=== PATIENT | female | born 1965 | race Hispanic/Latino ===

== ENCOUNTER 2017-07-10 17:13 | Emergency (ER) | payer MEDICAID ==
[~2017-07-10 17:13] MED LIST: FERS325 PO
[2017-07-10 18:01] LABS: APPEARANCE,URINE Clear (CLEAR); BILIRUBIN,URINE Negative (NEGATIVE); COLOR,URINE Yellow (YELLOW); GLUCOSE, URINE (UA) Negative (NEGATIVE); KETONES,URINE Negative (NEGATIVE); LEUKOCYTE ESTERASE ,URINE Negative (NEGATIVE); NITRATE,URINE Negative (NEGATIVE); OCCULT BLOOD,URINE Negative (NEGATIVE); PROTEIN,URINE Negative (NEGATIVE)
[2017-07-10] MEDS ORDERED: KETOROLAC TROMETHAMINE 15MG/ML ONE ×2 (18:31→21:15)
[2017-07-10 18:44] LABS: BASOPHILS % (AUTO) 0.2 % (0.0-5.0); EOSINOPHILS % (AUTO) 1.2 % (0.0-8.0); HEMATOCRIT 42.9 % (36-48); LYMPHOCYTES % (AUTO) 31.7 % (21.0-51.0); MEAN CORPUSCULAR HEMOGLOBIN 30.1 pg (27.0-33.0); MEAN CORPUSCULAR HGB CONC 33.4 g/dL (32.0-36.0); MEAN CORPUSCULAR VOLUME 90.2 fL (79-99); MONOCYTES % (AUTO) 8.9 % (3.0-13.0); PLATELET COUNT (AUTO) 129 K/uL (130-400); RED BLOOD CELL COUNT(AUTO) 4.76 MIL/uL (4.00-5.50); RED CELL DISTRIBUTION WIDTH 13.3 % (11.0-15.5); WHITE BLOOD COUNT (AUTO) 5.3 K/uL (4.8-10.8)
[2017-07-10 19:03] LABS: POTASSIUM 3.8 mmol/L (3.5-5.1)
[2017-07-10 19:07] LABS: ALBUMIN 3.4 g/dL (3.5-5.0); BILIRUBIN,TOTAL 0.2 mg/dL (0.2-1.0); TOTAL PROTEIN, SERUM 7.1 g/dL (6.0-8.3)
== END 2017-07-10 21:31 | disposition home or self-care (01) ==
LOC: EDH 17:13
DX: N83.202 Unspecified ovarian cyst, left side (principal); Z88.0 Allergy status to penicillin; Z88.8 Allergy status to other drugs, medicaments and biological substances; Z90.49 Acquired absence of other specified parts of digestive tract; Z98.890 Other specified postprocedural states; Z90.710 Acquired absence of both cervix and uterus; Z72.0 Tobacco use
CPT/HCPCS: 36415; 71045; 74176; 80053; 81003; 82150; 83690; 85025; 96374; 96376; 99285; J1885 ×2

== ENCOUNTER 2018-05-03 16:21 | Emergency (ER) | payer MEDICAID ==
[2018-05-03 17:30] LABS: BASOPHILS % (AUTO) 0.6 % (0.0-5.0); EOSINOPHILS % (AUTO) 0.7 % (0.0-8.0); HEMATOCRIT 45.1 % (36-48); LYMPHOCYTES % (AUTO) 21.2 % (21.0-51.0); MEAN CORPUSCULAR HEMOGLOBIN 30.5 pg (27.0-33.0); MEAN CORPUSCULAR HGB CONC 33.1 g/dL (32.0-36.0); MEAN CORPUSCULAR VOLUME 91.9 fL (79-99); MONOCYTES % (AUTO) 5.7 % (3.0-13.0); NEUTROPHILS % (AUTO) 71.8 % (40.0-77.0); PLATELET COUNT (AUTO) 150 K/uL (130-400); RED CELL DISTRIBUTION WIDTH 13.2 % (11.0-15.5); WHITE BLOOD COUNT (AUTO) 9.4 K/uL (4.8-10.8)
[2018-05-03 17:47] LABS: CREATININE 0.8 mg/dL (0.5-1.5); POTASSIUM 3.8 mmol/L (3.5-5.1)
[2018-05-03 17:48] LABS: ALBUMIN 3.3 g/dL (3.5-5.0); BILIRUBIN,TOTAL 0.3 mg/dL (0.2-1.0); TOTAL PROTEIN, SERUM 6.7 g/dL (6.0-8.3)
[2018-05-03] MEDS ORDERED: MECLIZINE HCL 25 MG TABLET ONE (17:58)
[2018-05-03 18:04] LABS: APPEARANCE,URINE Cloudy (CLEAR); BILIRUBIN,URINE Negative (NEGATIVE); COLOR,URINE Yellow (YELLOW); GLUCOSE, URINE (UA) Negative (NEGATIVE); KETONES,URINE Negative (NEGATIVE); LEUKOCYTE ESTERASE ,URINE Trace (NEGATIVE); NITRATE,URINE Negative (NEGATIVE); OCCULT BLOOD,URINE Negative (NEGATIVE); PROTEIN,URINE Negative (NEGATIVE)
[2018-05-03 18:11] LABS: AMPHET/METH SCREEN,URINE NEGATIVE (NEGATIVE); BARBITURATE SCREEN, URINE NEGATIVE (NEGATIVE); BENZODIAZEPINES SCREEN,URINE NEGATIVE (NEGATIVE); CANNABINOID SCREEN,URINE NEGATIVE (NEGATIVE); COCAINE SCREEN,URINE NEGATIVE (NEGATIVE); OPIATE SCREEN,URINE NEGATIVE (NEGATIVE); PHENCYCLIDINE SCREEN,URINE NEGATIVE (NEGATIVE)
[2018-05-03 18:24] LABS: BACTERIA,URINE Moderate /HPF (None Seen); MUCUS,URINE Few LPF (None Seen); RBC,URINE None Seen /HPF (0-1); SQUAMOUS EPITHELIAL CELL,UR 0-2 /HPF (0-2)
[2018-05-03] MEDS ORDERED: CEPHALEXIN 500 MG CAPSULE ONE (19:47)
== END 2018-05-03 20:01 | disposition home or self-care (01) ==
LOC: EDH 16:21
DX: N39.0 Urinary tract infection, site not specified (principal); H81.399 Other peripheral vertigo, unspecified ear; R51 Headache; F41.9 Anxiety disorder, unspecified; Z88.0 Allergy status to penicillin; Z90.49 Acquired absence of other specified parts of digestive tract; Z90.710 Acquired absence of both cervix and uterus; Z72.0 Tobacco use
CPT/HCPCS: 36415; 80053; 80305; 81001; 82150; 82550; 83690; 84443; 84484; 85025; 87077; 87088; 87186; 93005

== ENCOUNTER 2018-08-16 16:05 | Emergency (ER) | payer MEDICAID | END 2018-08-16 16:33 | disposition home or self-care (01) | LOC: EDH 16:05 | DX: R21 Rash and other nonspecific skin eruption (principal); L29.9 Pruritus, unspecified; F41.9 Anxiety disorder, unspecified; Z88.0 Allergy status to penicillin; Z72.0 Tobacco use | CPT/HCPCS: 99281 ==

== ENCOUNTER 2018-10-28 15:52 | Emergency (ER) | payer MEDICAID ==
[2018-10-28 16:41] LABS: BASOPHILS % (AUTO) 0.4 % (0.0-5.0); EOSINOPHILS % (AUTO) 0.9 % (0.0-8.0); HEMATOCRIT 45.4 % (36-48); LYMPHOCYTES % (AUTO) 25.9 % (21.0-51.0); MEAN CORPUSCULAR HEMOGLOBIN 29.9 pg (27.0-33.0); MEAN CORPUSCULAR HGB CONC 32.6 g/dL (32.0-36.0); MEAN CORPUSCULAR VOLUME 91.9 fL (79-99); MONOCYTES % (AUTO) 5.5 % (3.0-13.0); NEUTROPHILS % (AUTO) 67.3 % (40.0-77.0); NUCLEATED RED BLOOD CELLS 0.1 % (0.0-0.19); PLATELET COUNT (AUTO) 138 K/uL (130-400); RED BLOOD CELL COUNT(AUTO) 4.95 MIL/uL (4.00-5.50); RED CELL DISTRIBUTION WIDTH 13.7 % (11.0-15.5); WHITE BLOOD COUNT (AUTO) 5.4 K/uL (4.8-10.8)
[2018-10-28] MEDS ORDERED: ONDANSETRON HCL 4 MG/2 ML VIAL ONE (16:42)
[2018-10-28] MEDS ORDERED: FAMOTIDINE/PF 20 MG/2 ML VIAL IV ONE (16:42)
[2018-10-28] MEDS ORDERED: SODIUM CHLORIDE 0.9% 1000ML 1,000 ML IV ONE (16:42)
[2018-10-28 16:58] LABS: CREATININE 0.8 mg/dL (0.5-1.5); POTASSIUM 3.5 mmol/L (3.5-5.1)
[2018-10-28 17:04] LABS: ALBUMIN 3.6 g/dL (3.5-5.0); BILIRUBIN,TOTAL 0.3 mg/dL (0.2-1.0)
[2018-10-28] MEDS ORDERED: MAG HYDROX/AL HYDROX/SIMETH ES 30 ML SUSP UDCUP ONE (17:41)
[2018-10-28] MEDS ORDERED: LIDOCAINE HCL 2% VISCOUS 15 ML UDCUP ONE (17:41)
== END 2018-10-28 17:48 | disposition home or self-care (01) ==
LOC: EDH 15:52
DX: K21.9 Gastro-esophageal reflux disease without esophagitis (principal); J06.9 Acute upper respiratory infection, unspecified; F41.9 Anxiety disorder, unspecified; Z88.0 Allergy status to penicillin; Z88.8 Allergy status to other drugs, medicaments and biological substances; Z90.49 Acquired absence of other specified parts of digestive tract; Z90.710 Acquired absence of both cervix and uterus
CPT/HCPCS: 36415; 80053; 83690; 84484; 85025; 87804 ×2; 93005; 96374; 96375; 99285; J2405; J3490; J7030

== ENCOUNTER 2022-06-25 10:20 | Emergency (ER) | payer MEDICAID, OTHER ==
[~2022-06-25] VITALS: Ht 157.5 cm; Wt 74.8 kg
[2022-06-25] MEDS ORDERED: 0.9%NACL 1000ML 1,000 ML IV ONE (10:30)
[2022-06-25 10:55] LABS: BASOPHILS % (AUTO) 0.4 % (0.0-5.0); HEMATOCRIT 46.3 % (36-48); MEAN CORPUSCULAR VOLUME 90.6 fL (79-99); MONOCYTES % (AUTO) 8.6 % (3.0-13.0); NEUTROPHILS % (AUTO) 58.6 % (40.0-77.0); PLATELET COUNT (AUTO) 144 K/uL (130-400); RED BLOOD CELL COUNT(AUTO) 5.11 MIL/uL (4.00-5.50); RED CELL DISTRIBUTION WIDTH 12.6 % (11.0-15.5); WHITE BLOOD COUNT (AUTO) 5.5 K/uL (4.8-10.8)
[2022-06-25 11:03] LABS: POTASSIUM 3.8 mmol/L (3.5-5.1)
[2022-06-25 11:08] LABS: ALBUMIN 3.8 g/dL (3.5-5.0)
[2022-06-25 11:32] LABS: APPEARANCE,URINE CLOUDY (CLEAR); BILIRUBIN,URINE NEGATIVE (NEGATIVE); COLOR,URINE YELLOW (YELLOW); GLUCOSE, URINE (UA) NEGATIVE (NEGATIVE); KETONES,URINE NEGATIVE (NEGATIVE); LEUKOCYTE ESTERASE ,URINE 250 Leu/uL (NEGATIVE); NITRATE,URINE 2+ (NEGATIVE); PROTEIN,URINE 10 mg/dL (NEGATIVE); UROBILINOGEN,URINE 0.2 mg/dL (0.2-1.0)
[2022-06-25] MEDS ORDERED: ACETAMINOPHEN 500 MG TABLET PO STA (11:35)
[2022-06-25 11:45] LABS: BACTERIA,URINE MANY /HPF (None Seen); MUCUS,URINE MANY LPF (None Seen); SQUAMOUS EPITHELIAL CELL,UR FEW /HPF (0-2)
[2022-06-25 12:56] VITALS: BP 140/75
[2022-06-25] MEDS ORDERED: SULF1TAB42 PO (13:47)
[2022-06-25] MEDS ORDERED: NAPR375T6 PO (13:47)
[2022-06-25] MEDS ORDERED: KETOROLAC 30MG VIAL (30MG/ML) ONE (13:51)
== END 2022-06-25 14:11 | disposition home or self-care (01) ==
LOC: EDH 10:20
DX: N39.0 Urinary tract infection, site not specified (principal); Z90.49 Acquired absence of other specified parts of digestive tract; Z79.899 Other long term (current) drug therapy; Z88.0 Allergy status to penicillin; Z88.8 Allergy status to other drugs, medicaments and biological substances
CPT/HCPCS: 99284; 96374; 96361; 84484; 80053; 85025; 87077; 87088; 87186; 81001; 36415; 93005; J7030; J1885

== ENCOUNTER 2022-09-07 13:40 | Emergency (ER) | payer OTHER ==
[~2022-09-07] VITALS: Ht 157.5 cm; Wt 77.1 kg
[~2022-09-07 13:40] MED LIST changes: +NAPR375T6 PO; +SULF1TAB42 PO
[2022-09-07] MEDS ORDERED: ONDANSETRON 4MG INJ IVP ONE (15:00)
[2022-09-07] MEDS ORDERED: 0.9%NACL 1000ML 1,000 ML IV ONE (15:00)
[2022-09-07 15:07] LABS: BASOPHILS % (AUTO) 0.4 % (0.0-5.0); HEMATOCRIT 46.1 % (36-48); LYMPHOCYTES % (AUTO) 33.5 % (21.0-51.0); MEAN CORPUSCULAR HEMOGLOBIN 29.1 pg (27.0-33.0); MEAN CORPUSCULAR VOLUME 88.3 fL (79-99); MONOCYTES % (AUTO) 7.6 % (3.0-13.0); NEUTROPHILS % (AUTO) 57.2 % (40.0-77.0); PLATELET COUNT (AUTO) 142 K/uL (130-400); RED BLOOD CELL COUNT(AUTO) 5.22 MIL/uL (4.00-5.50); WHITE BLOOD COUNT (AUTO) 7.2 K/uL (4.8-10.8)
[2022-09-07 15:21] LABS: APPEARANCE,URINE CLOUDY (CLEAR); BILIRUBIN,URINE NEGATIVE (NEGATIVE); COLOR,URINE LIGHT-YELLOW (YELLOW); GLUCOSE, URINE (UA) NEGATIVE (NEGATIVE); KETONES,URINE NEGATIVE (NEGATIVE); LEUKOCYTE ESTERASE ,URINE 25 Leu/uL (NEGATIVE); NITRATE,URINE 1+ (NEGATIVE); OCCULT BLOOD,URINE NEGATIVE (NEGATIVE); PH,URINE 5.5 (5.0-8.0); PROTEIN,URINE NEGATIVE (NEGATIVE); UROBILINOGEN,URINE 0.2 mg/dL (0.2-1.0)
[2022-09-07] MEDS ORDERED: LACT10SO5 PO (15:27)
[2022-09-07 15:30] LABS: ALBUMIN 3.8 g/dL (3.5-5.0); CREATININE 0.8 mg/dL (0.5-1.5); POTASSIUM 3.8 mmol/L (3.5-5.1); TOTAL PROTEIN, SERUM 6.9 g/dL (6.0-8.3)
[2022-09-07 15:36] LABS: BACTERIA,URINE MOD /HPF (None Seen); MUCUS,URINE RARE LPF (None Seen); OTHER CASTS, URINE 1 /LPF (None Seen); SQUAMOUS EPITHELIAL CELL,UR MOD /HPF (0-2)
[2022-09-07] MEDS ORDERED: SULF1TAB42 PO (15:37)
[2022-09-07 16:32] VITALS: BP 113/64
== END 2022-09-07 16:52 | disposition home or self-care (01) ==
LOC: EDH 13:40
DX: N39.0 Urinary tract infection, site not specified (principal); K59.00 Constipation, unspecified; K80.20 Calculus of gallbladder without cholecystitis without obstruction; Z90.49 Acquired absence of other specified parts of digestive tract; Z79.899 Other long term (current) drug therapy; Z98.890 Other specified postprocedural states; Z88.0 Allergy status to penicillin; Z88.8 Allergy status to other drugs, medicaments and biological substances
CPT/HCPCS: 99285; 74176; 96374; 96361; 84484; 80053; 83690; 85025; 87077; 87088; 87186; 81001; 36415; J7030; J2405

== ENCOUNTER 2023-06-25 10:48 | Emergency (ER) | payer OTHER ==
[~2023-06-25] VITALS: Ht 157.5 cm; Wt 78.0 kg
[~2023-06-25 10:48] MED LIST changes: +LACT10SO5 PO
[2023-06-25 11:17] VITALS: BP 134/91; PULSE 64; RESP 20
[2023-06-25 13:08] LABS: APPEARANCE,URINE CLEAR (CLEAR); BILIRUBIN,URINE NEGATIVE (NEGATIVE); COLOR,URINE LIGHT-YELLOW (YELLOW); GLUCOSE, URINE (UA) NEGATIVE (NEGATIVE); KETONES,URINE NEGATIVE (NEGATIVE); LEUKOCYTE ESTERASE ,URINE NEGATIVE Leu/uL (NEGATIVE); NITRATE,URINE NEGATIVE (NEGATIVE); OCCULT BLOOD,URINE NEGATIVE (NEGATIVE); PH,URINE 5.5 (5.0-8.0); PROTEIN,URINE NEGATIVE (NEGATIVE); UROBILINOGEN,URINE 0.2 mg/dL (0.2-1.0)
[2023-06-25 13:13] LABS: ADD UA MICROSCOPIC NO
[2023-06-25 14:24] LABS: BASOPHILS # (AUTO) 0.03 K/uL (0.00-0.20); BASOPHILS % (AUTO) 0.4 % (0.0-5.0); EOSINOPHILS # (AUTO) 0.17 K/uL (0.00-0.70); EOSINOPHILS % (AUTO) 2.3 % (0.0-8.0); HEMATOCRIT 47.1 % (36-48); IMMATURE GRANULOCYTE ABSOLUTE 0.02 K/uL (0-1); LYMPHOCYTES # (AUTO) 2.3 K/uL (1.0-4.8); LYMPHOCYTES % (AUTO) 30.6 % (21.0-51.0); MEAN CORPUSCULAR HGB CONC 32.5 g/dL (32.0-36.0); MEAN CORPUSCULAR VOLUME 89.4 fL (79-99); MONOCYTES # (AUTO) 0.3 K/uL (0.1-1.0); MONOCYTES % (AUTO) 4.4 % (3.0-13.0); NEUTROPHILS # (AUTO) 4.7 K/uL (1.8-7.7); PLATELET COUNT (AUTO) 143 K/uL (130-400); RED BLOOD CELL COUNT(AUTO) 5.27 MIL/uL (4.00-5.50); RED CELL DISTRIBUTION WIDTH 12.6 % (11.0-15.5); WHITE BLOOD COUNT (AUTO) 7.5 K/uL (4.8-10.8)
[2023-06-25 14:49] LABS: CREATININE 0.8 mg/dL (0.5-1.5); POTASSIUM 4.1 mmol/L (3.5-5.1)
[2023-06-25 14:54] LABS: ALBUMIN 3.7 g/dL (3.5-5.0); BILIRUBIN,TOTAL 0.4 mg/dL (0.2-1.0); TOTAL PROTEIN, SERUM 7.1 g/dL (6.0-8.3)
[2023-06-25] MEDS ORDERED: ACET-2893 PO (15:10)
== END 2023-06-25 15:30 | disposition home or self-care (01) ==
LOC: EDH 10:48
DX: S39.012A Strain of muscle, fascia and tendon of lower back, initial encounter (principal); Z79.899 Other long term (current) drug therapy; Z90.49 Acquired absence of other specified parts of digestive tract; Z98.890 Other specified postprocedural states; Z88.0 Allergy status to penicillin; Z88.8 Allergy status to other drugs, medicaments and biological substances; X58.XXXA Exposure to other specified factors, initial encounter; Y93.89 Activity, other specified; Y92.89 Other specified places as the place of occurrence of the external cause; Y99.8 Other external cause status
CPT/HCPCS: 36415; 74176; 80053; 81003; 83690; 85025

== ENCOUNTER 2024-01-14 16:01 | Emergency (ER) | payer BC ==
[~2024-01-14] VITALS: Ht 157.5 cm; Wt 81.6 kg
[~2024-01-14 16:01] MED LIST changes: +ACET-2893 PO; +LACT-441 PO; -LACT10SO5 PO; +NAPR-1505 PO; -NAPR375T6 PO
--- NOTE | 2024-01-14 16:17 | ERN ---
General Stated Complaint: FEVER, COUGH Time Seen by MD: 16:07 History of Present Illness Initial Comments 58 years old female patient who presents to or emergency apartment complaining of cough, runny nose, and chest pain that began yesterday. Allergies: Coded Allergies: Penicillins (Unverified Allergy, Unknown, RASH, 04/17/18) Quinolones (Unverified Allergy, Unknown, HIVES, 07/03/15) Home Meds Active Scripts Famotidine (Famotidine) 20 Mg Tablet, 20 MG PO DAILY for 30 Days, #30 TAB Prov:RICHARD CARVAJAL NP 02/24/24 Atorvastatin Calcium (LIPITOR) 20 Mg Tab, 1 TAB PO DAILY for 30 Days, #30 TAB 0 Refills Prov:RICHARD CARVAJAL NP 02/24/24 Aspirin (Aspirin) 81 Mg Tab.chew, 1 TAB PO DAILY for 30 Days, #30 TAB 0 Refills Prov:RICHARD CARVAJAL NP 02/24/24 Clopidogrel Bisulfate (Plavix) 75 Mg Tablet, 75 MG PO DAILY for 20 Days, #20 TAB Prov:RICHARD CARVAJAL NP 02/24/24 Reported Medications Acetaminophen (Tylenol) 500 Mg Tab, 1 TAB PO Q6HPRN PRN for pain or fever for 15 Days, #60 TAB 0 Refills 02/24/24 Discontinued Scripts Azithromycin (Azithromycin) 500 Mg Tablet, 500 MG PO DAILY for 5 Days, #5 TAB Prov:KATERINA ALICEA MD 01/14/24 Acetaminophen (Acetaminophen ER) 650 Mg Tablet.er, 650 MG PO TID, #30 TAB Prov:EMELY ORTEGA 06/25/23 Sulfamethoxazole/Trimethoprim (Bactrim Ds Tablet) 1 Each Tablet, 1 TAB PO BID for uti for 5 Days, #10 TAB Prov:PARKER GRIFFIN MD 09/07/22 Lactulose (Lactulose) 10 Gm/15 Ml Solution, 10 GM PO BID for 5 Days, #120 ML Prov:PARKER GRIFFIN MD 09/07/22 Naproxen (Naproxen) 375 Mg Tablet.dr, 375 MG PO BID PRN for headache for 10 Days, #20 TAB Prov:MOHIT BAUMANN MD 06/25/22 Sulfamethoxazole/Trimethoprim (Bactrim Ds Tablet) 1 Each Tablet, 1 TAB PO BID for 7 Days, #14 TAB Prov:MOHIT BAUMANN MD 06/25/22 Ferrous Sulfate (Ferrous Sulfate) 325 Mg Ectab, 325 MG PO DAILY, #60 TAB.EC Prov:RICHARD STRAUSS MD 07/04/15 Past Medical History Past Medical History: Other Medical History Other: ANEMIA Past Surgical History: Cholecystectomy, Social History Social History: Negative ROS Dictation Constitutional: Intermittent fever, No appetite loss, chills , No night sweats, No weakness, fatigue Eye: No vision change, No redness, pain or discharge ENT: No hearing loss, ear pain or discharge, No nose bleeds, No sore throat, Neck: No swelling. pain or stiffness Respiratory: Cough, runny nose, No shortness of breath, No wheezing. Cardiovascular: Chest pain, No palpitations, No dyspnea, No edema Gastrointestinal: No abdominal pain, No nausea, vomiting, No diarrhea, constipation Genitourinary: No painful urination, No blood in urine, No urinary incontinence, No frequency or urgency Musculoskeletal: No joint pain, muscle pain, swelling or stiffness Neurological: No numbness, tingling, No weakness, tremors or seizures Psychiatric: : No depression, No anxiety, No sleep disturbance, No Memory changes Lymphatic: No easy bruising, No bleeding tendencies , No swollen lymph nodes A 13-point Review of Systems was assessed, all of which are negative except for HPI or as indicated above. Physical Exam Physical Exam Dictation General: Alert & Oriented, No acute distress. EENT: Pharyngeal erythema, No conjunctival redness or discharge noted Tympanic membranes are clear, Normal hearing, Oral mucosa is moist, No pharyngeal erythema, No nasal discharge, No oral lesions. Neck: Non-tender, No jugular vein distention, No lymphadenopathy, No thyromegaly, Supple. Respiratory: Lungs are clear to auscultation, Respirations are non-labored, Breath sounds are equal, No chest wall tenderness, _. Cardiovascular: Normal rate, Normal rhythm, No murmur, Good pulses equal in all extremities, Normal peripheral perfusion, No edema. Gastrointestinal: Soft, Non-tender, Non-distended, Normal bowel sounds, No organomegaly, _. Musculoskeletal: Normal range of motion, Normal strength, No tenderness, No swelling, No deformity, Normal gait. Integumentary: Warm, Dry, [place], Intact, No pallor, No rash. Neurologic: Alert, Oriented x4, Normal sensory, No focal defects Psychiatric: Cooperative, Appropriate mood & affect, Normal judgement, Non- suicidal. Results Laboratory and Microbiology Lab and Micro Result Laboratory Tests Test 01/14/24 16:36 01/14/24 16:38 01/14/24 17:40 Influenza Type A Antigen Negative For Type A Influenza Type B Antigen Negative For Type B SARS-CoV-2 Antigen (Rapid) PRESUMPTIVE NEGATIVE Group A Streptococcus Rapid positive (NEGATIVE) *A White Blood Count 6.7 K/uL (4.8-10.8) Red Blood Count 5.02 MIL/uL (4.00-5.50) Hemoglobin 14.7 g/dL (12.0-16.0) Hematocrit 45.5 % (36-48) Mean Corpuscular Volume 90.6 fL (79-99) Mean Corpuscular Hemoglobin 29.3 pg (27.0-33.0) Mean Corpuscular Hemoglobin Concent 32.3 g/dL (32.0-36.0) Red Cell Distribution Width 13.1 % (11.0-15.5) Platelet Count 152 K/uL (130-400) Mean Platelet Volume 11.9 fL (7.5-10.5) H Nucleated Red Blood Cells 0.0 % (0.0-0.19) Sodium Level 143 mmol/L (136-145) Potassium Level 3.6 mmol/L (3.5-5.1) Chloride Level 109 mmol/L (101-111) Carbon Dioxide Level 28 mmol/L (21-32) Blood Urea Nitrogen 14 mg/dL (7-18) Creatinine 1.0 mg/dL (0.5-1.0) Glomerular Filtration Rate Calc 66 mL/min (>90) Random Glucose 99 mg/dL (70-105) Total Calcium 8.7 mg/dL (8.5-10.1) Urine Color YELLOW (YELLOW) Urine Appearance CLOUDY (CLEAR) H Urine pH 5.5 (5.0-8.0) Urine Specific [place] 1.023 (1.001-1.031) Urine Protein 10 mg/dL (NEGATIVE) H Urine Glucose (UA) NEGATIVE mg/dL (NEGATIVE) Urine Ketones NEGATIVE mg/dL (NEGATIVE) Urine Occult Blood +- (TRACE) (NEGATIVE) H Urine Nitrate 2+ (NEGATIVE) H Urine Bilirubin NEGATIVE mg/dL (NEGATIVE) Urine Urobilinogen 0.2 mg/dL (0.2-1.0) Urine Leukocyte Esterase 25 [place]/uL (NEGATIVE) H Urine RBC 2-5 /HPF (0-1) H Urine WBC 6-10 /HPF (0-1) H Urine Squamous Epithelial Cells FEW /HPF (0-2) Urine Bacteria FEW /HPF (None Seen) Urine Yeast RARE /HPF (None Seen) Labs Reviewed?: Yes EKG/XRAY/US/CT/MRI EKG Comment PATIENT: SHARON RENNER MR#: [id number] : 1965 SEX: F AGE: 58 LOCATION: ED ROOM/BED: ORDER [id number] REPORT#: [id number] REASON: ORDERING PHYSICIAN: KATERINA ALICEA MD PROCEDURE: EKG - 12 LEAD EKG TRACING- TECHNICAL [facility] Test Date: 2024-01-14 Test Time: 16:29:51 Pat Name: SHARON RENNER Department: [facility] [address] Room: Gender: Female 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 MDM MDM: Differential diagnosis: Cough, viral syndrome, strep Rationale: Tests considered and ordered secondary to shared decision making include: Previous outside records reviewed: Old ER visits. Risk of complication and/or morbidity or mortality of patient management: None Medications-Per medication reconciliation Need for hospitalization: Patient does not meet criteria for hospitalization. Need for emergency major/minor surgery: No There are no social concerns with this patient. Prescription drug management Prescriptions will include symptomatic care Patient's prior external medical records from other ER visits were reviewed by me as indicated. Prior testing and results from previous visits were reviewed. Prior tests were taken into account with medical decision making and resource utilization, independent historian/historians were used to obtain complete medical history. I independently interpreted the test that were performed, results were reviewed by me and considered findings on radiology if ordered. Medical management and examination interpretation discussions were had by me with other qualified healthcare professionals as indicated for the patient's care. ED Course Orders Procedure Category Date Status Time Chest 1vw RAD 01/14/24 Resulted 16:17 Cbc Without LAB 01/14/24 Complete Differential 16:17 Basic Metabolic Panel LAB 01/14/24 Complete 16:17 12 Lead Ekg Tracing- EKG 01/14/24 Resulted Technical 16:17 Covid19 (Sars Antigen LAB 01/14/24 Complete Rapid) 16:17 Influenza Type A & B, LAB 01/14/24 Complete Rapid 16:17 Rapid (Group A Strep) LAB 01/14/24 Complete 16:17 Urinalysis Profile LAB 01/14/24 Complete 17:30 Culture Urine FANY 01/14/24 Complete 17:47 Vital Signs Date Time Temp Pulse Resp B/P (MAP) Pulse Ox O2 Delivery O2 Flow Rate FiO2 01/14/24 18:39 98.8 86 18 149/76 98 Room Air* 0 21 01/14/24 17:15 98.6 82 18 155/94 98 Room Air* 0 21 01/14/24 16:21 98.4 68 18 129/84 97 DX & DISP Disposition: Discharge Departure Impression: Primary Impression: Strep pharyngitis Additional Impression: UTI (urinary tract infection) Critical Time: 30 minutes Condition: Stable Additional Instructions: *Follow up with your primary care physician in 2 - 3 days after discharge. *Continue all medications as prescribed. Do not discontinue or change dosages without consulting your PCP. *Gradually resume normal activities as tolerated. *Seek immediate medical attention if you experience chest pain, SOB or severe headache. Discharged to: Condition on Discharge: Stable Follow-up with primary care provider in 1 to 2 days. Take medications as directed here in the emergency room. Okay to continue home medications unless otherwise discussed during your visit in the emergency room today. Return to your nearest emergency room if symptoms worsen or if there is no improvement. Call 911 if you need immediate assistance. Take Tylenol or Motrin [id number] as needed and if no contraindications are present. Increase oral hydration. Referrals: SELF,REFERRAL (PCP) I was present and participated in the care of this patient alongside the resident physician. I have reviewed and personally made and improve the management plan that is documented in the note by myself or the resident physician. I acknowledge full responsibility for the patient's management plan. ATTESTATION BY PHYSICIAN I have seen and examined the patient. I reviewed the documentation, medical decision making, and treatment plan as noted by the resident provider above. I agree with the findings and plan of care. Wojciech Arreguin MD, GERARDO MD Jan 14, 2024 16:17 WOJCIECH ARREGUIN MD Feb 28, 2024 13:31
--- NOTE | 2024-01-14 16:33 | EKG ---
[facility] Test Date: 2024-01-14 Test Time: 16:29:51 Pat Name: SHARON RENNER Department: ED Room: Gender: F Generation Manager: [id number] : 1965 Requested By: KATERINA ALICEA Order Number: [id number] Reading MD: Paola Estrada Measurements Intervals [place] Rate: 64 P: 35 [place]: 154 QRS: -32 QRSD: 85 T: -7 QT: 413 QTc: 426 Interpretive Statements Sinus rhythm Compared to ECG 06/25/2022 10:38:01 Left ventricular hypertrophy no longer present T-wave abnormality no longer present Electronically Signed On 01-16-2024 07:23:07 CDT by Paola Estrada Please click the below link to view image of tracing.
[2024-01-14 17:00] LABS: HEMATOCRIT 45.5 % (36-48); MEAN CORPUSCULAR HEMOGLOBIN 29.3 pg (27.0-33.0); MEAN CORPUSCULAR HGB CONC 32.3 g/dL (32.0-36.0); MEAN CORPUSCULAR VOLUME 90.6 fL (79-99); RED BLOOD CELL COUNT(AUTO) 5.02 MIL/uL (4.00-5.50); RED CELL DISTRIBUTION WIDTH 13.1 % (11.0-15.5); WHITE BLOOD COUNT (AUTO) 6.7 K/uL (4.8-10.8)
[2024-01-14 17:10] LABS: POTASSIUM 3.6 mmol/L (3.5-5.1)
[2024-01-14 17:28] LABS: COVID19 (SARS ANTIGEN RAPID) PRESUMPTIVE NEGATIVE (NEGATIVE); INFLUENZA TYPE A Negative For Type A (NEGATIVE); INFLUENZA TYPE B Negative For Type B (NEGATIVE)
[2024-01-14 17:46] LABS: ADD UA MICROSCOPIC YES; APPEARANCE,URINE CLOUDY (CLEAR); BILIRUBIN,URINE NEGATIVE (NEGATIVE); COLOR,URINE YELLOW (YELLOW); GLUCOSE, URINE (UA) NEGATIVE (NEGATIVE); KETONES,URINE NEGATIVE (NEGATIVE); LEUKOCYTE ESTERASE ,URINE 25 Leu/uL (NEGATIVE); NITRATE,URINE 2+ (NEGATIVE); PH,URINE 5.5 (5.0-8.0); PROTEIN,URINE 10 mg/dL (NEGATIVE); UROBILINOGEN,URINE 0.2 mg/dL (0.2-1.0)
[2024-01-14 17:49] LABS: BACTERIA,URINE FEW /HPF (None Seen); MUCUS,URINE RARE LPF (None Seen); SQUAMOUS EPITHELIAL CELL,UR FEW /HPF (0-2); YEAST,URINE BUDDING RARE /HPF (None Seen)
[2024-01-14 17:49] LABS: RAPID GROUP A STREP positive (NEGATIVE)
--- NOTE | 2024-01-14 17:57 | HMCIMG ---
CHEST 1VW HISTORY: Acute cough COMPARISON: 07/10/2017 FINDINGS: A frontal projection of the chest was obtained. No acute pulmonary infiltrates is seen. The heart is borderline enlarged. Prominent interstitial markings are seen. Degenerative changes are seen. No evidence of aortic calcification is seen. IMPRESSION: 1. No acute pulmonary infiltrate is seen.
[2024-01-14] MEDS ORDERED: AZIT500T4 PO (18:13)
[2024-01-14 18:39] VITALS: BP 149/76; PULSE 86; RESP 18; TEMP 98.7; O2SAT 98
--- NOTE | 2024-01-22 10:36 | NUR ---
UPON CULTURE REVIEW BY DR. WALLS, NO FURTHER ABX NEEDED.
== END 2024-01-14 18:43 | disposition home or self-care (01) ==
LOC: EDH 16:01
DX: J02.0 Streptococcal pharyngitis (principal); Z20.822 Contact with and (suspected) exposure to COVID-19; N39.0 Urinary tract infection, site not specified; Z79.02 Long term (current) use of antithrombotics/antiplatelets; Z79.82 Long term (current) use of aspirin; Z79.899 Other long term (current) drug therapy; Z88.0 Allergy status to penicillin; Z88.8 Allergy status to other drugs, medicaments and biological substances; Z90.49 Acquired absence of other specified parts of digestive tract; Z98.890 Other specified postprocedural states
CPT/HCPCS: 36415; 71045; 80048; 81001; 85027; 87086; 87186; 87426; 87804; 87880; 93005

== ENCOUNTER 2024-02-23 12:00 | Inpatient (IN) | payer BC ==
[~2024-02-23] VITALS: Ht 157.5 cm; Wt 79.8 kg
[~2024-02-23 12:00] MED LIST changes: +AZIT500T4 PO
[2024-02-23 12:27] LABS: BASOPHILS # (AUTO) 0.01 K/uL (0.00-0.20); BASOPHILS % (AUTO) 0.2 % (0.0-5.0); EOSINOPHILS # (AUTO) 0.11 K/uL (0.00-0.70); EOSINOPHILS % (AUTO) 2.1 % (0.0-8.0); HEMATOCRIT 44.7 % (36-48); IMMATURE GRANULOCYTE ABSOLUTE 0.01 K/uL (0-1); LYMPHOCYTES # (AUTO) 2.1 K/uL (1.0-4.8); LYMPHOCYTES % (AUTO) 38.8 % (21.0-51.0); MEAN CORPUSCULAR HEMOGLOBIN 29.6 pg (27.0-33.0); MEAN CORPUSCULAR HGB CONC 33.6 g/dL (32.0-36.0); MEAN CORPUSCULAR VOLUME 88.3 fL (79-99); MONOCYTES # (AUTO) 0.3 K/uL (0.1-1.0); NEUTROPHILS # (AUTO) 2.8 K/uL (1.8-7.7); NEUTROPHILS % (AUTO) 52.7 % (40.0-77.0); PLATELET COUNT (AUTO) 150 K/uL (130-400); RED BLOOD CELL COUNT(AUTO) 5.06 MIL/uL (4.00-5.50); RED CELL DISTRIBUTION WIDTH 12.7 % (11.0-15.5); WHITE BLOOD COUNT (AUTO) 5.3 K/uL (4.8-10.8)
[2024-02-23 12:36] LABS: CREATININE 0.9 mg/dL (0.5-1.0); POTASSIUM 3.5 mmol/L (3.5-5.1)
--- NOTE | 2024-02-23 12:43 | HMCIMG ---
CT HEAD/BRAIN W/O CONTRAST HISTORY: Code stroke COMPARISON: None TECHNIQUE: Multiple sequential axial images of the head were obtained from the base of the skull through vertex. Patient was not given contrast through intravenous route. FINDINGS: The ventricles and extraventricular CSF spaces are nondilated for patient's age. There is no midline shift, mass effect or herniation. No acute intracranial bleed is seen. Visualized portion of the paranasal sinuses are grossly within normal limits. IMPRESSION: 1. No acute intracranial bleed is seen. CT was performed with one or more following dose reduction techniques: automated exposure control, adjustment of the mA and kv according to patient's size, or use of a iterative reconstruction technique.
--- NOTE | 2024-02-23 12:46 | EKG ---
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
--- NOTE | 2024-02-23 13:01 | HMCIMG ---
CHEST 1VW HISTORY: Shortness of breath COMPARISON: 01/14/2024 FINDINGS: A frontal projection of the chest was obtained. No acute pulmonary infiltrates is seen. The heart is normal in size. Prominent interstitial markings are seen. Degenerative changes are seen. No evidence of aortic calcification is seen. IMPRESSION: 1. No acute pulmonary infiltrate is seen.
[2024-02-23 13:06] LABS: B-TYPE NATRIURETIC PEPTIDE 16 pg/mL (0-100)
--- NOTE | 2024-02-23 13:14 | CONS ---
CONSULT NOTE: [facility] Note # Demographics Consult Type: Acute Stroke Level 1 (0-4.5 hrs) Patient Location: Emergency Room First Name: SHARON Last Name: ZURDO Date of : 1965 Age: 59 Gender: Female Facility: [facility] Time of Initial Page (Central Time): 02/23/2024, 12:53 Time of Return Call (Central Time): 02/23/2024, 12:53 # HPI History: 59yo woman presents to the ED with left sided weakness starting at around 1145AM today. She has no numbness or tingling. She does have left shoulder soreness. Duration: - improving Associated Symptoms: - no vision changes - no confusion - no dizziness # Scores Time of exam and NIHSS (Central Time): 02/23/2024, 12:56 Level of Consciousness 1a: [0] = Alert; keenly responsive LOC Questions 1b: [0] = Answers both questions correctly LOC Commands 1c: [0] = Performs both tasks correctly Best Gaze 2: [0] = Normal Visual 3: [0] = No visual loss Facial Palsy 4: [0] = Normal symmetrical movements Motor Arm Left 5a: [0] = No drift Motor Arm Right 5b: [0] = No drift Motor Leg Left 6a: [0] = No drift Motor Leg Right 6b: [0] = No drift Limb Ataxia 7: [0] = Absent Sensory 8: [0] = Normal Best Language 9: [0] = No aphasia Dysarthria 10: [0] = Normal Extinction and Inattention 11: [0] = No abnormality NIHSS Total: 0 # PMH-FH-SH Past Medical History: - denies Social History: - smoker - non-drinker Medications: - No antithrombotics or anticoagulants reported # Assessment Impression: - Transient Ischemic Attack # Plan Thrombolytic/Intervention: NOT IV Thrombolysis or IA Intervention candidate Thrombolytic Exclusion (< 3 hour window): - NIHSS = 0 Intraarterial Exclusion: - clinical exam not consistent with presence of large vessel occlusion (LVO), can reconsider if LVO found on vascular imaging Target Blood Pressure: SBP < 220 Labs: - lipid panel Imaging: (urgency: STAT): - CT Angiogram Head and CT Angiogram Neck AND call back with results if abnormal Imaging: (urgency: routine): - MRI Brain without contrast Diagnostic Test: - echo with bubble study Therapy/Evaluation: - PT/OT evaluation - speech/swallow consultation Medication: - aspirin 81 mg PLUS clopidogrel (Plavix) 75 mg for 21 days, then monotherapy therafter DVT Prophylaxis: - SCD - chemical DVT prophylaxis Other: - If patient has any neurological deterioration please call me back immediately - LDL < 70 - telemetry monitoring - I have discussed my recommendations with the referring provider - permissive hypertension Disposition: admit # Demographics First Name: SHARON Last Name: ZURDO Facility: [facility] GEOVANNI MOYA MD Feb 23, 2024 13:14
--- NOTE | 2024-02-23 14:09 | ERN ---
General Chief Complaint: Numbness Stated Complaint: LEFT SIDE OF BODY STIFFNESS Time Seen by MD: 12:10 Time Seen by Midlevel: 12:10 Source: patient History of Present Illness Initial Comments Patient is a 59-year-old female coming in to be evaluated for left-sided numbness which subsided upon evaluation in triage. Allergies: Coded Allergies: Penicillins (Unverified Allergy, Unknown, RASH, 04/17/18) Quinolones (Unverified Allergy, Unknown, HIVES, 07/03/15) Home Meds Active Scripts Azithromycin (Azithromycin) 500 Mg Tablet, 500 MG PO DAILY for 5 Days, #5 TAB Prov:KATERINA ALICEA MD 01/14/24 Acetaminophen (Acetaminophen ER) 650 Mg Tablet.er, 650 MG PO TID, #30 TAB Prov:EMELY ORTEGA V DRIVER EDUCATION INSTRUCTOR 06/25/23 Sulfamethoxazole/Trimethoprim (Bactrim Ds Tablet) 1 Each Tablet, 1 TAB PO BID for uti for 5 Days, #10 TAB Prov:PARKER GRIFFIN MD 09/07/22 Lactulose (Lactulose) 10 Gm/15 Ml Solution, 10 GM PO BID for 5 Days, #120 ML Prov:PARKER GRIFFIN MD 09/07/22 Naproxen (Naproxen) 375 Mg Tablet.dr, 375 MG PO BID PRN for headache for 10 Days, #20 TAB Prov:MOHIT BAUMANN MD 06/25/22 Sulfamethoxazole/Trimethoprim (Bactrim Ds Tablet) 1 Each Tablet, 1 TAB PO BID for 7 Days, #14 TAB Prov:MOHIT BAUMANN MD 06/25/22 Ferrous Sulfate (Ferrous Sulfate) 325 Mg Ectab, 325 MG PO DAILY, #60 TAB.EC Prov:RICHARD STRAUSS MD 07/04/15 Past Medical History Past Medical History: Other Medical History Other: ANEMIA Past Surgical History: Cholecystectomy, Social History Social History: Negative ROS Dictation CONSTITUTIONAL: Negative except for HPI HEAD/FACE: Negative except for HPI EENT: Negative except for HPI RESPIRATORY: Negative except for HPI GASTROINTESTINAL/ABDOMINAL: Negative except for HPI GENITOURINARY: Negative except for HPI MUSCULOSKELETAL: Negative except for HPI INTEGUMENTARY: Negative except for HPI NEUROLOGICAL/PSYCH: Negative except for HPI HEMATOLOGIC/LYMPHATIC: Negative except for HPI All Systems Negative, Except as noted above. 13 point review of systems assessed and all negative except for above. Physical Exam Physical Exam Dictation Vital Signs reviewed General Appearance: Alert, oriented x 3, no acute distress, well developed, nourished. Head and Face: non-traumatic. Eyes: PERRL, pink conjunctivas, eyelid no trauma, anterior chamber with arcus senilis. Ears: Pinnas intact and no signs of trauma or erythema ear canals clear and no discharge TM no erythema Nose: No discharge, no bleeding. Oropharynx: Mouth normal, tongue pink, pharynx clear,no erythema, tonsils no exudates, no abscesses noted, mucous membrane moist Neck: Supple, non-tender, no thyromegaly, no masses, no JVD, no bruits Breast:Deferred Chest:No tenderness, no crepitus, no paradoxical movement, no retractions Lungs:Clear, well-ventilated, symmetric, no rales, no wheezing, no rhonchi, no stridor, good breath sounds bilaterally Heart: Regular rate, regular rhythm, no murmur, no gallops Vascular: no peripheral edema, Abdomen: Soft, positive bowel sounds, nondistended, no guarding, nontender, no rebound, no masses no hepatomegaly, no splenomegaly, no Zhang's sign, no hernias. Rectal: Deferred Genital: Deferred Neurological: Normal speech, motor function intact, sensory function intact Musculoskeletal: Neck nontender, full range of motion, back nontender, full range of motion, Extremities: nontender, full range of motion Skin: Color pink, dry, no turgor, no rash, no lacerations, no abrasions, no contusions. Lymphatic: Deferred Stroke Patient?: No Is Patient Candidate for t-PA?: No (Due to rapidly resolving symptoms) Did the Patient Receive t-PA?: No Contraindication for t-PA?: Medical Contraindication NIH STROKE SCALE: NIH STROKE SCALE Response (Comments) Value Level of Consciousness Alert 0 Ask patient month and their age Answers both correct 0 Command to open eyes, make fist and let go Obeys both correct 0 Best gaze (horizontal eye movement) Normal 0 Visual Field Testing No Visual Field Loss 0 Facial Paresis Normal / Symmetrical 0 Motor Function - Left Arm Normal 0 Motor Function - Right Arm Normal 0 Motor Function - Left Leg Normal 0 Motor Function - Right Leg Normal 0 Limb Ataxia No Ataxia 0 Sensory-pin prick to arms, legs, trunk and face Normal 0 Best Language (describe picture, name items and read) No Aphasia 0 Dysarthria (read several words) Normal Articulation 0 Extinction and Inattention Normal 0 Total 0 Neuro Comment: Patient is not a candidate for tPA due to rapidly resolving symptoms. Results Laboratory and Microbiology Lab and Micro Result Laboratory Tests Test 02/23/24 12:09 02/23/24 12:14 White Blood Count 5.3 K/uL (4.8-10.8) Red Blood Count 5.06 MIL/uL (4.00-5.50) Hemoglobin 15.0 g/dL (12.0-16.0) Hematocrit 44.7 % (36-48) Mean Corpuscular Volume 88.3 fL (79-99) Mean Corpuscular Hemoglobin 29.6 pg (27.0-33.0) Mean Corpuscular Hemoglobin Concent 33.6 g/dL (32.0-36.0) Red Cell Distribution Width 12.7 % (11.0-15.5) Platelet Count 150 K/uL (130-400) Mean Platelet Volume 11.8 fL (7.5-10.5) H Immature Granulocyte % (Auto) 0.2 % (0-1) Neutrophils (%) (Auto) 52.7 % (40.0-77.0) Lymphocytes (%) (Auto) 38.8 % (21.0-51.0) Monocytes (%) (Auto) 6.0 % (3.0-13.0) Eosinophils (%) (Auto) 2.1 % (0.0-8.0) Basophils (%) (Auto) 0.2 % (0.0-5.0) Neutrophils # (Auto) 2.8 K/uL (1.8-7.7) Lymphocytes # (Auto) 2.1 K/uL (1.0-4.8) Monocytes # (Auto) 0.3 K/uL (0.1-1.0) Eosinophils # (Auto) 0.11 K/uL (0.00-0.70) Basophils # (Auto) 0.01 K/uL (0.00-0.20) Absolute Immature Granulocyte (auto 0.01 K/uL (0-1) Nucleated Red Blood Cells 0.0 % (0.0-0.19) Sodium Level 142 mmol/L (136-145) Potassium Level 3.5 mmol/L (3.5-5.1) Chloride Level 106 mmol/L (101-111) Carbon Dioxide Level 31 mmol/L (21-32) Blood Urea Nitrogen 12 mg/dL (7-18) Creatinine 0.9 mg/dL (0.5-1.0) Glomerular Filtration Rate Calc 75 mL/min (>90) Random Glucose 125 mg/dL (70-105) H Total Calcium 8.9 mg/dL (8.5-10.1) Total Creatine Kinase 107 U/L (21-232) # Troponin I High Sensitivity 6 ng/L (4-50) B-Type Natriuretic Peptide 16 pg/mL (0-100) Whole Blood Glucose 129 MG/DL (70-110) H Labs Reviewed?: Yes MDM MDM: Patient is a 59-year-old female with a past medical history of Differential diagnosis: TIA, ischemic stroke, and intracranial bleed Rationale: Tests considered and ordered secondary to shared decision making include: Previous outside records reviewed: Old ER visits. Risk of complication and/or morbidity or mortality of patient management: None Medications-Per medication reconciliation Need for hospitalization: Patient does meet criteria for hospitalization. Need for emergency major/minor surgery: No There are no social concerns with this patient. Prescription drug management Prescriptions will include symptomatic care Patient's prior external medical records from other ER visits were reviewed by me as indicated. Prior testing and results from previous visits were reviewed. Prior tests were taken into account with medical decision making and resource utilization, independent historian/historians were used to obtain complete medical history. I independently interpreted the test that were performed, results were reviewed by me and considered findings on radiology if ordered. Medical management and examination interpretation discussions were had by me with other qualified healthcare professionals as indicated for the patient's care. Patient will be admitted under the care of hospitalist group for ongoing evaluation and management of possible TIA. ED Course Orders Procedure Category Date Status Time Cbc With Differential LAB 02/23/24 Complete 12:14 Ct Head/Brain W/O CT 02/23/24 Resulted Contrast 12:14 Chest 1vw RAD 02/23/24 Resulted 12:14 12 Lead Ekg Tracing- EKG 02/23/24 Resulted Technical 12:14 Creatine Kinase, Total LAB 02/23/24 Complete 12:14 Troponin I High LAB 02/23/24 Complete Sensitivity 12:14 Urinalysis Profile LAB 02/23/24 Logged 12:14 B-Type Natriuretic LAB 02/23/24 Complete Peptide 12:14 Bedside Glucose CPOE 02/23/24 Transmitted Fingerstick 12:14 Vital Signs Per CPOE 02/23/24 Transmitted Routine 12:14 Cardiac Monitoring CPOE 02/23/24 Transmitted 12:14 Pulse Ox(Continuous) RT 02/23/24 Transmitted 12:14 Complete Nih Stroke CPOE 02/23/24 Transmitted Scale 12:14 Basic Metabolic Panel LAB 02/23/24 Complete 12:14 Edm Admit Bridge Order ADM 02/23/24 Transmitted 14:40 Famotidine 20mg Tab PHA 02/24/24 In Process (Pepcid 20mg Tab) 09:00 Acetaminophen 325 Tab PHA 02/23/24 In Process (Tylenol 325mg Tab 15:00 Ondansetron 4mg Inj PHA 02/23/24 In Process (Zofran 4mg Inj) 15:00 Clopidogrel 75mg Tab PHA 02/24/24 In Process (Plavix 75mg) 09:00 Aspirin 81mg Ec Tab PHA 02/24/24 In Process (Aspirin 81mg Ec Tab 09:00 Mr Brain Wo Con MRI 02/23/24 Resulted 14:43 Ct Angio Head And Neck CT 02/23/24 Resulted 14:43 Heart Healthy Diet DIET 02/23/24 Transmitted Dinner Speech Communication ST 02/23/24 Transmitted Order 14:43 Pt Eval And Treat PT 02/23/24 Transmitted 14:43 Echo 2-D Complete ECHO 02/23/24 Logged 14:[address] 02/23/24 Transmitted 14:43 Apply Scds CPOE 02/23/24 Transmitted 14:43 Atorvastatin 10mg PHA 02/23/24 In Process (Lipitor 10mg) 21:00 Iohexol (Omnipaque) PHA 02/23/24 Complete 15:10 Thyroid Stimulating LAB 02/23/24 In Process Hormone 15:55 Smoking Cessation TRACY 02/23/24 In Process 15:55 Current Medications Medications (Trade) Dose Ordered Sig/Ike Route PRN Reason Start Time Stop Time Status Last Admin Dose Admin Acetaminophen (TYLenol 325MG TAB) 650 mg Q4H PRN PO TEMPERATURE GREATER THAN 101.5 02/23/24 15:00 03/24/24 14:59 Aspirin (Aspirin 81mg Ec Tab) 81 mg DAILY PO 02/24/24 09:00 03/25/24 08:59 Atorvastatin Calcium (LIPItor 10MG) 10 mg HS PO 02/23/24 21:00 03/24/24 20:59 Clopidogrel Bisulfate (plaVIX 75MG) 75 mg DAILY PO 02/24/24 09:00 03/25/24 08:59 Famotidine (Pepcid 20mg Tab) 20 mg DAILY PO 02/24/24 09:00 03/25/24 08:59 Iohexol (Omnipaque) 75 ml STK-MED ONCE IV 02/23/24 15:10 02/23/24 15:11 DC Ondansetron HCl (zoFRAN 4MG INJ) 4 mg Q6H PRN IVP NAUSEA/VOMITING 02/23/24 15:00 03/24/24 14:59 Vital Signs Date Time Temp Pulse Resp B/P (MAP) Pulse Ox O2 Delivery O2 Flow Rate FiO2 02/23/24 13:34 98.2 60 16 135/72 98 Room Air* 0 21 02/23/24 12:14 97.9 88 16 126/85 98 Room Air 0 [place] [address] IMAGING REPORT Signed PATIENT: SHARON RENNER MR#: [id number] : 1965 SEX: F AGE: 59 LOCATION: [facility] ORDER 1216 STATUS: REG REPORT#: [id number] SERVICE 1214 REASON: left sided numbness ORDERING PHYSICIAN: SABI AMARAL PROCEDURE: HEAD WO - CT HEAD/BRAIN W/O CONTRAST CT HEAD/BRAIN W/O CONTRAST HISTORY: Code stroke COMPARISON: None TECHNIQUE: Multiple sequential axial images of the head were obtained from the base of the skull through vertex. Patient was not given contrast through intravenous route. FINDINGS: The ventricles and extraventricular CSF spaces are nondilated for patient's age. There is no midline shift, mass effect or herniation. No acute intracranial bleed is seen. Visualized portion of the paranasal sinuses are grossly within normal limits. IMPRESSION: 1. No acute intracranial bleed is seen. CT was performed with one or more following dose reduction techniques: automated exposure control, adjustment of the mA and kv according to patient's size, or use of a iterative reconstruction technique. DICTATED BY: JADYN MABRY MD DATE: 02/23/24 1223 ELECTRONICALLY SIGNED BY: JADYN MABRY MD DATE: 02/23/24 1243 [facility] [address] [place] [address] IMAGING REPORT Signed PATIENT: SHARON RENNER MR#: [id number] : 1965 SEX: F AGE: 59 LOCATION: [facility] ORDER 121 STATUS: [facility] REPORT#: [id number] SERVICE 13 REASON: sob ORDERING PHYSICIAN: SABI AMARAL PROCEDURE: CXR1VW - CHEST 1VW CHEST 1VW HISTORY: Shortness of breath COMPARISON: 01/14/2024 FINDINGS: A frontal projection of the chest was obtained. No acute pulmonary infiltrates is seen. The heart is normal in size. Prominent interstitial markings are seen. Degenerative changes are seen. No evidence of aortic calcification is seen. IMPRESSION: 1. No acute pulmonary infiltrate is seen. DICTATED BY: JADYN MABRY MD DATE: 02/23/24 1258 ELECTRONICALLY SIGNED BY: JADYN MABRY MD DATE: 02/23/24 1301 DX & DISP Disposition: Inpatient Decision to Admit Date: Feb 23, 2024 Decision to Admit Time: 14:43 Departure Impression: Primary Impression: TIA (transient ischemic attack) Condition: Stable Referrals: EFRAIN BENITES (PCP) I have reviewed the case, and I agree with, Diagnosis and Plan I performed the substantive portion of the visit. I have reviewed and personally made and approve the management plan that is documented in the note by myself or the DOUGLAS. I acknowledge for responsibility for the patient's management plan. SABI AMARAL Feb 23, 2024 14:09 MOHIT BAUMANN MD Feb 23, 2024 16:16
[2024-02-23] MEDS ORDERED: acetaMINOPHEN 325 MG TAB PO PRN (15:00)
[2024-02-23] MEDS ORDERED: ondanSETRON 4MG INJ IVP PRN (15:00)
[2024-02-23] MEDS ORDERED: IOHEXOL-350 75 ML VIAL IV ONE (15:10)
--- NOTE | 2024-02-23 15:33 | HMCIMG ---
CT ANGIO HEAD AND NECK HISTORY: Left-sided numbness COMPARISON: None TECHNIQUE: CT angiography of the head was performed. The study was performed using angiographic technique with maximum intensity projection reconstruction images. Patient was given 75 cc of Omnipaque through intravenous route. FINDINGS: The ventricles and extraventricular CSF spaces are nondilated for patient's age. There is no midline shift, mass effect or herniation. No acute intracranial bleed is seen. Visualized portion of the paranasal sinuses are grossly within normal limits. No CT evidence of cerebral aneurysm or abnormal arteriovenous communication is seen. Diffuse atherosclerosis changes are present. Bilateral takeoff of the posterior cerebral arteries are seen. Vertebrobasilar arterial system is grossly within normal limits. IMPRESSION: CTA Head 1. Atherosclerotic disease. Otherwise unremarkable CTA of the brain. TECHNIQUE: CT angiography of the neck was performed. The study was performed using angiographic technique with maximum intensity projection reconstruction images. FINDINGS: There are degenerative changes of the cervical spine. Parapharyngeal fat planes are preserved bilaterally. The airway is patent. Normal enhancement of the thyroid gland is noted. Visualized portion of the lung apices are unremarkable. The common, internal and external carotid arteries are visualized. No hemodynamically significant lesion is seen of either extracranial carotid artery system. Both vertebral arteries are seen with antegrade flow. IMPRESSION: CTA Neck 1. Atherosclerotic disease. No hemodynamically significant lesion is seen of either extracranial carotid artery system. CT was performed with one or more following dose reduction techniques: automated exposure control, adjustment of the mA and kv according to patient's size, or use of a iterative reconstruction technique.
--- NOTE | 2024-02-23 16:05 | HMCIMG ---
MR BRAIN WO CON HISTORY: CVA COMPARISON: None TECHNIQUE: MRI of the brain was performed utilizing multiple pulse sequences in axial, coronal and sagittal planes. Patient was not given contrast through intravenous route. FINDINGS: The ventricles and extraventricular CSF spaces are nondilated for patient's age. There is no midline shift, mass effect or herniation. No subacute hemorrhage is seen. 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 There is questionable left pontine infarct. No MR evidence of acute infarct is seen in the diffusion weighted images. Cerebellar tonsils are in normal position. No evidence of mucoperiosteal thickening is seen of the visualized paranasal sinuses. No MR evidence of a mass lesion is seen in this noncontrast study. IMPRESSION: 1. No MR evidence of acute infarct is seen in the diffusion weighted images.
--- NOTE | 2024-02-23 16:05 | HP ---
[facility] HISTORY AND PHYSICAL Date of Service: Feb 23, 2024 Time of Service: 14:37 HISTORY OF PRESENT ILLNESS: [ ] This is a 59-year-old female presents in ED with chief complaints of left-sided weakness. Onset started today at 11:45 a.m.. Severity moderate to severe aggravating factors none alleviating factors none patient reports unable to lift of move left sided she denied numbness or tingling. On arrival to ED symptoms were improved she denied any vision changes, confusion, dizziness,. ER initiated stroke alert patient was evaluated by kevin arcos neuro on his assessment NIHSS was 0 Patient is reports history of smoking smoke one pack cigarettes every [address] head was negative. The patient was seen and examiend in ER 12: no focal or sensory deficit at this time. Further testing to rule CVA. REVIEW OF SYSTEMS CONSTITUTIONAL: Denies fevers, chills, or night sweats. No unintentional weight loss reported. NEUROLOGICAL: Denies headache, amaurosis fugax, motor weakness, sensory deficit, vertigo/spinning sensation, gait abnormalities, or tremors. ENT: No hearing loss, otalgia, otorrhea, rhinitis, rhinorrhea, hoarseness, or sore throat. CARDIOVASCULAR: Denies any exertional angina, dyspnea on exertion, orthopnea, paroxysmal nocturnal dyspnea, palpitations, life-threatening arrhythmias, claudication. PULMONARY: Denies any shortness of breath, cough, phlegm/sputum, hemoptysis, pleuritic chest pain. SLEEP: Denies morning headaches, daytime somnolence or napping. Denies difficulty falling asleep, staying asleep, waking from sleep. Denies knowledge of snoring. GASTROINTESTINAL: Denies any type of dysphagia to either liquids or solids. Denies nausea, vomiting, pyrosis, early satiety, abdominal pain, diarrhea, constipation, or changes in stool consistency or caliber. Denies coffee-ground emesis, hematemesis, hematochezia, or melanotic stools. GENITOURINARY: Denies frequency, urgency, nocturia, hematuria or incontinence (Storage/Irritative symptoms.) Low urinary stream, straining to void, urinary intermittency or hesitancy, splitting of the voiding stream, terminal dribbling. ENDOCRINOLOGIC: Denies polyuria, polydipsia, polyphagia or heat/cold intolerances. HEMATOLOGIC: Denies thrombophilia/previous clots, or coagulopathy/bleeding disorders. ONCOLOGIC: Denies personal history of malignancy. DERMATOLOGIC: Denies rashes or pruritus. PSYCHIATRIC: Denies any suicidal or homicidal ideation. Denies hallucinations. PAST MEDICAL HISTORY: [ ] no history PAST SURGICAL HISTORY: [ ] c cestion left thumb surgery PAST SOCIAL HISTORY: [ ]tobacco dependency: smoke one pack every other day. FAMILY HISTORY: [ ] Noncontributory Coded Allergies: Penicillins (Unverified Allergy, Unknown, RASH, 04/17/18) Quinolones (Unverified Allergy, Unknown, HIVES, 07/03/15) PHYSICAL EXAM GENERAL APPEARANCE: The patient is awake, alert, and oriented, in no acute cardiopulmonary distress. NEUROLOGICAL: Cranial nerves II-XII grossly intact. Motor is 5/5 in bilateral upper and lower extremities proximal to distal. No sensory deficits. HEENT: Face is symmetric. Pupils are equal and reactive. Extraocular movements are intact. NECK: Supple. No JVD. No thyromegaly. No submental, submandibular, pre- /postauricular, occipital or supraclavicular lymphadenopathy. CHEST: Normal chest expansion. No Telemetry. LUNGS: Absence of any rales, rhonchi or any wheezing. CARDIOVASCULAR: Regular. S1 and S2 normal. No appreciable rubs, murmurs or gallops. ABDOMEN: Soft, nontender, and nondistended. There is no rebound, voluntary guarding, or rigidity. : Deferred. No Jovel. EXTREMITIES: Non-edematous and not cyanotic. No clubbing. Good capillary refill. SKIN: No skin breakdown. Vital Sign (Last 24 Hours) 02/23/24 13:34 Temp 98.2 Pulse 60 Resp 16 B/P (MAP) 135/72 Pulse Ox 98 O2 Delivery Room Air* O2 Flow Rate 0 FiO2 21 LABS: Laboratory: Test 02/23/24 12:14 02/23/24 12:09 Range/Units Whole Blood Glucose 129 H 70-110 MG/DL White Blood Count 5.3 4.8-10.8 K/uL Red Blood Count 5.06 4.00-5.50 MIL/uL Hemoglobin 15.0 12.0-16.0 g/dL Hematocrit 44.7 36-48 % Mean Corpuscular Volume 88.3 79-99 fL Mean Corpuscular Hemoglobin 29.6 27.0-33.0 pg Mean Corpuscular Hemoglobin Concent 33.6 32.0-36.0 g/dL Red Cell Distribution Width 12.7 11.0-15.5 % Platelet Count 150 130-400 K/uL Mean Platelet Volume 11.8 H 7.5-10.5 fL Immature Granulocyte % (Auto) 0.2 0-1 % Neutrophils (%) (Auto) 52.7 40.0-77.0 % Lymphocytes (%) (Auto) 38.8 21.0-51.0 % Monocytes (%) (Auto) 6.0 3.0-13.0 % Eosinophils (%) (Auto) 2.1 0.0-8.0 % Basophils (%) (Auto) 0.2 0.0-5.0 % Neutrophils # (Auto) 2.8 1.8-7.7 K/uL Lymphocytes # (Auto) 2.1 1.0-4.8 K/uL Monocytes # (Auto) 0.3 0.1-1.0 K/uL Eosinophils # (Auto) 0.11 0.00-0.70 K/uL Basophils # (Auto) 0.01 0.00-0.20 K/uL Absolute Immature Granulocyte (auto 0.01 0-1 K/uL Nucleated Red Blood Cells 0.0 0.0-0.19 % Sodium Level 142 136-145 mmol/L Potassium Level 3.5 3.5-5.1 mmol/L Chloride Level 106 101-111 mmol/L Carbon Dioxide Level 31 21-32 mmol/L Blood Urea Nitrogen 12 7-18 mg/dL Creatinine 0.9 0.5-1.0 mg/dL Glomerular Filtration Rate Calc 75 >90 mL/min Random Glucose 125 H 70-105 mg/dL Total Calcium 8.9 8.5-10.1 mg/dL Total Creatine Kinase 107 # 21-232 U/L Troponin I High Sensitivity 6 4-50 ng/L B-Type Natriuretic Peptide 16 0-100 pg/mL DIAGNOSTICS / RADIOLOGY: [ ] ASSESSMENT: Suspecting CVA POA left side weakness POA Tobacco dependency POA PLAN: [ ] admit: Med surgical Diet: Heart Healthy consult; [facility] Tele neuroTest: MRI brain, CTA head and neck, 2 D Echo with bubble study Labs: lipid panel, TSH speech, PT eval and treat replaced electrolytes as needed as per protocol fall precaution: call light in reach Medications: Plavix 75 mg po daily and aspirin 81 mg po daily PRN: MEDICATIONS Tylenol 650 mg po every 4 hrs for fever zofran 4 mg IV every 6 hrs for n/v Hydralazine 4mg IV every 4 hrs systolic pressure > 160 Supportive measures: DVT ppx, GI ppx all questions answered time spent: > 35 min Supervising MD: Dr. Borja c/d [facility] PLANNING 1. Which of the following were discussed? Hospice Care - Yes / No Therapeutic options - Yes / No Advance Directives - Yes / No Other discussions - 2. Discussed with who? 3. Voluntary nature of this service was explained to the patient? Yes / No 4. Amount of time spent - 5. Reviewed by Physician? (if this service was performed by NPP) Yes / No ATTESTATION BY PHYSICIAN I have seen and examined the patient. I reviewed the documentation, medical decision making, and treatment plan as noted by the mid-level provider above. I agree with the findings and plan of care. FAIZA BORJA MD ATTESTATION BY PHYSICIAN I have seen and examined the patient. I reviewed the documentation, medical decision making, and treatment plan as noted by the mid-level provider above. I agree with the findings and plan of care. FAIZA BORJA MD, [facility] OPER[employer] SPECIALIST Feb 23, 2024 16:05
[2024-02-23 16:50] LABS: APPEARANCE,URINE CLEAR (CLEAR); BILIRUBIN,URINE NEGATIVE (NEGATIVE); COLOR,URINE COLORLESS (YELLOW); GLUCOSE, URINE (UA) NEGATIVE (NEGATIVE); KETONES,URINE NEGATIVE (NEGATIVE); LEUKOCYTE ESTERASE ,URINE NEGATIVE Leu/uL (NEGATIVE); NITRATE,URINE NEGATIVE (NEGATIVE); OCCULT BLOOD,URINE NEGATIVE (NEGATIVE); PH,URINE 6.5 (5.0-8.0); PROTEIN,URINE 10 mg/dL (NEGATIVE); UROBILINOGEN,URINE 0.2 mg/dL (0.2-1.0)
[2024-02-23 16:53] LABS: ADD UA MICROSCOPIC YES
[2024-02-23 16:56] LABS: MUCUS,URINE RARE LPF (None Seen); SQUAMOUS EPITHELIAL CELL,UR FEW /HPF (0-2)
[2024-02-23] MEDS: atorVAStatin 10 MG TABLET PO SCH (21:07)
[2024-02-24] VITALS (8 sets, daily range): BP systolic 103–144; BP diastolic 47–72; PULSE 51–68; RESP 18; TEMP 97.8–98.6; O2SAT 97–98
[2024-02-24] MEDS ORDERED: ACET-66 PO (02:28)
[2024-02-24] MEDS: traMADol HCL 50 MG TABLET PO ONE (02:44)
[2024-02-24] MEDS ORDERED: ASPI-1197 PO (08:20)
[2024-02-24] MEDS ORDERED: CLOP-31 PO (08:20)
[2024-02-24] MEDS ORDERED: ATOR10 PO (08:20)
[2024-02-24] MEDS ORDERED: FAMO20TA8 PO (08:20)
[2024-02-24] MEDS: cloPIDOgrel 75MG TAB PO SCH (09:37)
[2024-02-24] MEDS: FAMOTIDINE 20MG TAB PO SCH (09:37)
[2024-02-24] MEDS: ASPIRIN 81 MG EC TAB PO SCH (09:37)
[2024-02-24 10:03] LABS: HEMOGLOBIN A1C 5.2 % (4.0-6.0)
--- NOTE | 2024-02-24 10:04 | PN ---
[facility] PROGRESS NOTE Date of Service: Feb 24, 2024 Time of Service: 09:54 SUBJECTIVE: [ ] This is a 59-year-old female presents in ED with chief complaints of left-sided weakness. Onset started today at 11:45 a.m.. Severity moderate to severe aggravating factors none alleviating factors none patient reports unable to lift of move left sided she denied numbness or tingling. On arrival to ED symptoms were improved she denied any vision changes, confusion, dizziness,. ER initiated stroke alert patient was evaluated by kevin arcos neuro on his assessment NIHSS was 0 So far workup has been negative patient is pending 2D echo with bubble study we will get a EEG patient had a repeat episode at 2:00 a.m. this morning we will reconsult neurologist's kevin arcos neurologist's. Patient is seen and examined with Dr. Case at this time there is no focal or sensory deficits. REVIEW OF SYSTEMS CONSTITUTIONAL: Denies fevers, chills, or night sweats. No unintentional weight loss reported. NEUROLOGICAL: Denies headache, amaurosis fugax, motor weakness, sensory deficit, vertigo/spinning sensation, gait abnormalities, or tremors. ENT: No hearing loss, otalgia, otorrhea, rhinitis, rhinorrhea, hoarseness, or sore throat. CARDIOVASCULAR: Denies any exertional angina, dyspnea on exertion, orthopnea, paroxysmal nocturnal dyspnea, palpitations, life-threatening arrhythmias, claudication. PULMONARY: Denies any shortness of breath, cough, phlegm/sputum, hemoptysis, pleuritic chest pain. SLEEP: Denies morning headaches, daytime somnolence or napping. Denies difficulty falling asleep, staying asleep, waking from sleep. Denies knowledge of snoring. GASTROINTESTINAL: Denies any type of dysphagia to either liquids or solids. Denies nausea, vomiting, pyrosis, early satiety, abdominal pain, diarrhea, constipation, or changes in stool consistency or caliber. Denies coffee-ground emesis, hematemesis, hematochezia, or melanotic stools. GENITOURINARY: Denies frequency, urgency, nocturia, hematuria or incontinence (Storage/Irritative symptoms.) Low urinary stream, straining to void, urinary intermittency or hesitancy, splitting of the voiding stream, terminal dribbling. ENDOCRINOLOGIC: Denies polyuria, polydipsia, polyphagia or heat/cold intolerances. HEMATOLOGIC: Denies thrombophilia/previous clots, or coagulopathy/bleeding disorders. ONCOLOGIC: Denies personal history of malignancy. DERMATOLOGIC: Denies rashes or pruritus. PSYCHIATRIC: Denies any suicidal or homicidal ideation. Denies hallucinations. PHYSICAL EXAM GENERAL APPEARANCE: The patient is awake, alert, and oriented, in no acute cardiopulmonary distress. NEUROLOGICAL: Cranial nerves II-XII grossly intact. Motor is 5/5 in bilateral upper and lower extremities proximal to distal. No sensory deficits. HEENT: Face is symmetric. Pupils are equal and reactive. Extraocular movements are intact. NECK: Supple. No JVD. No thyromegaly. No submental, submandibular, pre- /postauricular, occipital or supraclavicular lymphadenopathy. CHEST: Normal chest expansion. No Telemetry. LUNGS: Absence of any rales, rhonchi or any wheezing. CARDIOVASCULAR: Regular. S1 and S2 normal. No appreciable rubs, murmurs or gallops. ABDOMEN: Soft, nontender, and nondistended. There is no rebound, voluntary guarding, or rigidity. : Deferred. No Jovel. EXTREMITIES: Non-edematous and not cyanotic. No clubbing. Good capillary refill. SKIN: No skin breakdown. Vital Signs (last 8hr) Date Time Temp Pulse Resp B/P (MAP) Pulse Ox O2 Delivery O2 Flow Rate FiO2 02/24/24 08:51 98.1 68 18 107/63 93 Room Air 21 02/24/24 04:00 97.9 54 18 117/59 96 Room Air 02/24/24 02:25 97 Room Air* 0 21 02/24/24 02:25 97.9 58 18 144/72 97 Room Air 02/24/24 02:03 58 16 113/68 97 Room Air* 0 21 LABS: Laboratory: Test 02/23/24 16:33 02/23/24 12:14 02/23/24 12:09 Range/Units Urine Color COLORLESS YELLOW Urine Appearance CLEAR CLEAR Urine pH 6.5 5.0-8.0 Urine Specific [place] 1.046 H 1.001-1.031 Urine Protein 10 H NEGATIVE mg/dL Urine Glucose (UA) NEGATIVE NEGATIVE mg/dL Urine Ketones NEGATIVE NEGATIVE mg/dL Urine Occult Blood NEGATIVE NEGATIVE Urine Nitrate NEGATIVE NEGATIVE Urine Bilirubin NEGATIVE NEGATIVE mg/dL Urine Urobilinogen 0.2 0.2-1.0 mg/dL Urine Leukocyte Esterase NEGATIVE NEGATIVE [place]/uL Urine RBC 2-5 H 0-1 /HPF Urine WBC 2-5 H 0-1 /HPF Urine Squamous Epithelial Cells FEW 0-2 /HPF Urine Bacteria None None Seen /HPF Whole Blood Glucose 129 H 70-110 MG/DL White Blood Count 5.3 4.8-10.8 K/uL Red Blood Count 5.06 4.00-5.50 MIL/uL Hemoglobin 15.0 12.0-16.0 g/dL Hematocrit 44.7 36-48 % Mean Corpuscular Volume 88.3 79-99 fL Mean Corpuscular Hemoglobin 29.6 27.0-33.0 pg Mean Corpuscular Hemoglobin Concent 33.6 32.0-36.0 g/dL Red Cell Distribution Width 12.7 11.0-15.5 % Platelet Count 150 130-400 K/uL Mean Platelet Volume 11.8 H 7.5-10.5 fL Immature Granulocyte % (Auto) 0.2 0-1 % Neutrophils (%) (Auto) 52.7 40.0-77.0 % Lymphocytes (%) (Auto) 38.8 21.0-51.0 % Monocytes (%) (Auto) 6.0 3.0-13.0 % Eosinophils (%) (Auto) 2.1 0.0-8.0 % Basophils (%) (Auto) 0.2 0.0-5.0 % Neutrophils # (Auto) 2.8 1.8-7.7 K/uL Lymphocytes # (Auto) 2.1 1.0-4.8 K/uL Monocytes # (Auto) 0.3 0.1-1.0 K/uL Eosinophils # (Auto) 0.11 0.00-0.70 K/uL Basophils # (Auto) 0.01 0.00-0.20 K/uL Absolute Immature Granulocyte (auto 0.01 0-1 K/uL Nucleated Red Blood Cells 0.0 0.0-0.19 % Sodium Level 142 136-145 mmol/L Potassium Level 3.5 3.5-5.1 mmol/L Chloride Level 106 101-111 mmol/L Carbon Dioxide Level 31 21-32 mmol/L Blood Urea Nitrogen 12 7-18 mg/dL Creatinine 0.9 0.5-1.0 mg/dL Glomerular Filtration Rate Calc 75 >90 mL/min Random Glucose 125 H 70-105 mg/dL Total Calcium 8.9 8.5-10.1 mg/dL Total Creatine Kinase 107 # 21-232 U/L Troponin I High Sensitivity 6 4-50 ng/L B-Type Natriuretic Peptide 16 0-100 pg/mL Thyroid Stimulating Hormone (TSH) 1.41 # 0.36-3.74 uIU/mL Current Medications Medications (Trade) Dose Ordered Sig/Ike Route PRN Reason Start Time Stop Time Status Last Admin Dose Admin Acetaminophen (TYLenol 325MG TAB) 650 mg Q4H PRN PO TEMPERATURE GREATER THAN 101.5 02/23/24 15:00 03/24/24 14:59 Aspirin (Aspirin 81mg Ec Tab) 81 mg DAILY PO 02/24/24 09:00 03/25/24 08:59 02/24/24 09:37 81 MG Atorvastatin Calcium (LIPItor 10MG) 10 mg HS PO 02/23/24 21:00 03/24/24 20:59 02/23/24 21:07 10 MG Clopidogrel Bisulfate (plaVIX 75MG) 75 mg DAILY PO 02/24/24 09:00 03/25/24 08:59 02/24/24 09:37 75 MG Famotidine (Pepcid 20mg Tab) 20 mg DAILY PO 02/24/24 09:00 03/25/24 08:59 02/24/24 09:37 20 MG Ondansetron HCl (zoFRAN 4MG INJ) 4 mg Q6H PRN IVP NAUSEA/VOMITING 02/23/24 15:00 03/24/24 14:59 DIAGNOSTICS / RADIOLOGY: [ ] ASSESSMENT: Suspecting CVA POA left side weakness POA suspected seizure Tobacco dependency POA PLAN: [ ] admit: Med surgical Diet: Heart Healthy consult; [place] Tele neurologist: DR Airam Ceron was reconsulted: Imaging MRI brain, CTA head and neck both negative 2 D Echo with bubble study pending recurrent left side weakness: EEG reconsulted DR Alegria speech rule out s/s aspiration PT eval and treat pending replaced electrolytes as needed as per protocol fall precaution: call light in reach Medications: Plavix 75 mg po daily and aspirin 81 mg po daily PRN: MEDICATIONS Tylenol 650 mg po every 4 hrs for fever zofran 4 mg IV every 6 hrs for n/v Hydralazine 4mg IV every 4 hrs systolic pressure > 160 Supportive measures: DVT ppx, GI ppx all questions answered further orders as per response to tx Supervising MD: Dr. Case c/d [facility]ING 1. Which of the following were discussed? Hospice Care - Yes / No Therapeutic options - Yes / No Advance Directives - Yes / No Other discussions - 2. Discussed with who? 3. Voluntary nature of this service was explained to the patient? Yes / No 4. Amount of time spent - 5. Reviewed by Physician? (if this service was performed by NPP) Yes / No ATTESTATION BY PHYSICIAN I have seen and examined the patient. I reviewed the documentation, medical decision making, and treatment plan as noted by the mid-level provider above. I agree with the findings and plan of care. FAIZA CASE MD ATTESTATION BY PHYSICIAN I have seen and examined the patient. I reviewed the documentation, medical decision making, and treatment plan as noted by the mid-level provider above. I agree with the findings and plan of care. FAIZA CASE MD, ELIZABETH NP Feb 24, 2024 10:04
[2024-02-24 10:05] LABS: CREATININE 0.9 mg/dL (0.5-1.0); POTASSIUM 3.7 mmol/L (3.5-5.1)
[2024-02-24 10:09] LABS: ALBUMIN 3.6 g/dL (3.5-5.0); BILIRUBIN,TOTAL 0.3 mg/dL (0.2-1.0); TOTAL PROTEIN, SERUM 7.3 g/dL (6.0-8.3)
--- NOTE | 2024-02-24 19:09 | HMCSR ---
APPROVED REPORT EXAM: Two-dimensional and M-mode echocardiogram with Doppler and color Doppler. INDICATION ICD: CVA Contrast Details Agent/Amount Used: Agitated Saline 2D Dimensions RVDd3.0 cmLVEF(%)52.9 (>50%)LVED Vol(simp.)83.2 mL IVSd0.7 (0.7-1.1cm)FS(%)27 %LVES Vol(simp.)34.9 mL LVDd4.8 (3.8-5.6cm)LA (2D)3.9 (1.6-4.0cm)LVEF(%, simp.)58 % PWd0.8 (0.7-1.1cm)Ao Root(2D)2.7 (2.0-3.7cm)LA ESV INDEX (4CH)20.20 mL/m2 IVSs0.7 cmLVOT diam2.1 (1.8-2.4cm)LA ESV INDEX (2CH)25.70 mL/m2 LVDs3.5 (2.5-4.0cm)LA ESV INDEX (BP)21.90 mL/m2 PWs1.3 cm Deformation Strain Apical 423.0 % Apical 218.0 % Apical 326.0 % Global Ibunto99.0 % M-Mode Dimensions EPSS0.8 cm LA (MM)4.3 (1.6-4.0cm) Ao Root(MM)2.8 (2.0-3.7cm) Aortic Valve AoV VTI0.3 mAo Mean GR5.0 mmHgLVOT VTI0.21 m YISEL (VMAX)2.2 cm2AVA (VTI) 2.2 cm2 Mitral Valve MV E Vmax76.2 cm/sDECEL Hglb549 ms MV A Vmax77.1 cm/sP 1/2 T87 ms E/A ratio1.0MVA (PHT)2.5 cm2 TDI E/E' Qavqxw86.1E/E' Lateral9.4 Medial E' Peak V5.80 cm/sLateral E' Peak V8.10 cm/s Pulmonary Valve PV VTI0.19 mPV Mean GR2 mmHg Tricuspid Valve TR Vmax1.7 m/s TR Peak GR11.2 mmHg Left Ventricle The left ventricle is normal size. GLS -22%, There is normal left ventricular wall thickness. LVEF is 55-60%. The left ventricular diastolic function is normal. Right Ventricle The right ventricle is normal size. The right ventricular systolic function is normal. Atria The left atrium size is normal. Negative bubbel study. No evidence of PFO/ASD by agitated saline. The right atrium size is normal. Aortic Valve The aortic valve is normal in structure. No aortic regurgitation is present. There is no aortic valvu lar stenosis. Mitral Valve The mitral valve is normal in structure. There is no mitral valve regurgitation noted. There is no mi tral valve stenosis. Tricuspid Valve The tricuspid valve is normal in structure. There is no tricuspid valve regurgitation noted. Pulmonic Valve The pulmonary valve is normal in structure. There is no pulmonic valvular regurgitation. Great Vessels The aortic root is normal in size. The IVC was not visualized. Pericardium There is no pericardial effusion. Conclusion LVEF is 55-60%. The left ventricular diastolic function is normal. The left atrium size is normal. Negative bubbel study. No evidence of PFO/ASD by agitated saline.
[2024-02-25] VITALS: BP 129/74; PULSE 55; RESP 20; TEMP 98.2
--- NOTE | 2024-02-25 01:37 | PRN ---
[place] EEG Note # Demographics Type of EEG Read: - Routine EEG - without video Patient Location: Inpatient First Name: SHARON Luke Last Name: ZURDO Date of : 1965 Age: 59 Gender: Female Facility: [facility] Time of Initial Page (Central Time): 02/24/2024, 15:34 Time of Return Call (Central Time): 02/24/2024, 15:37 # EEG Interpretation Start Time of EEG Read (Central Time): 02/24/2024, 14:43 Stop Time of EEG Read (Central Time): 02/24/2024, 15:08 Duration: 0h 25m Technical Details: - This study was recorded using the [employer] EEG software - The EEG electrodes were placed using the standard International 10-20 system of electrode placement. An accessory EKG lead was used during the course of this study. Indication: - seizure # Description Photic Stimulation: Performed Phases Captured: - sleep primarily normal sleep recording Symmetry: symmetric Posterior Dominant Rhythm: absent Predominant Frequencies: primarily normal sleep recording Amplitude: low Continuity: continuous EKG: NSR # Abnormalities Stimulation: - photic stimulation does NOT cause abnormalities Epileptiform Abnormalities: - NOT present Focal Slowing: no Seizure: - NOT present # Impression Impression: normal # Clinical Correlation Clinical Correlation: A normal EEG does not exclude nor support the diagnosis of epilepsy. # Logistics Telemedicine: remote EEG review: EEG reviewed remotely # Demographics First Name: SHARON Luke Last Name: ZURDO Facility: [facility] Electronically signed at 02/25/2024 01:36 (Central Time) by MD KAILA Beaver JAMAL F MD Feb 25, 2024 01:37
[2024-02-25 05:01] VITALS: BP 103/64; PULSE 60; RESP 18; TEMP 97.9
[2024-02-25 08:00] VITALS: BP 122/76; PULSE 57; RESP 14; TEMP 98
--- NOTE | 2024-02-25 08:43 | HMCIMG ---
CT HEAD/BRAIN W/O CONTRAST HISTORY: Left-sided weakness COMPARISON: None TECHNIQUE: Multiple sequential axial images of the head were obtained from the base of the skull through vertex. Patient was not given contrast through intravenous route. FINDINGS: The ventricles and extraventricular CSF spaces are nondilated for patient's age. There is no midline shift, mass effect or herniation. No acute intracranial bleed is seen. Visualized portion of the paranasal sinuses are grossly within normal limits. IMPRESSION: 1. No acute intracranial bleed is seen. CT was performed with one or more following dose reduction techniques: automated exposure control, adjustment of the mA and kv according to patient's size, or use of a iterative reconstruction technique.
--- NOTE | 2024-02-25 11:00 | PN ---
[facility] PROGRESS NOTE Date of Service: Feb 25, 2024 Time of Service: 10:54 SUBJECTIVE: [ ] This is a 59-year-old female presents in ED with chief complaints of left-sided weakness. Onset started today at 11:45 a.m.. Severity moderate to severe aggravating factors none alleviating factors none patient reports unable to lift of move left sided she denied numbness or tingling. On arrival to ED symptoms were improved she denied any vision changes, confusion, dizziness,. ER initiated stroke alert patient was evaluated by kevin hinkle on his assessment NIHSS was 0 So far workup has been negative patient is pending 2D echo with bubble study we will get a EEG patient had a repeat episode at 2:00 a.m. this morning we will reconsult neurologist's kevin arcos neurologist's. Patient is seen and examined with Dr. Case at this time there is no focal or sensory deficits. 03/16/24 patient is seen and examined with Dr. Case patient reports no episodes of weakness to right-sided overnight. Patient's 2nd tele neuro recommended CT cervical spine negative patient will be discharged. EEG was negative as well. Patient will need outpatient loop recorder monitoring as well patient denied chest pain or shortness for breath. REVIEW OF SYSTEMS CONSTITUTIONAL: Denies fevers, chills, or night sweats. No unintentional weight loss reported. NEUROLOGICAL: Denies headache, amaurosis fugax, motor weakness, sensory deficit, vertigo/spinning sensation, gait abnormalities, or tremors. ENT: No hearing loss, otalgia, otorrhea, rhinitis, rhinorrhea, hoarseness, or s ore throat. CARDIOVASCULAR: Denies any exertional angina, dyspnea on exertion, orthopnea, paroxysmal nocturnal dyspnea, palpitations, life-threatening arrhythmias, claudication. PULMONARY: Denies any shortness of breath, cough, phlegm/sputum, hemoptysis, pleuritic chest pain. SLEEP: Denies morning headaches, daytime somnolence or napping. Denies difficulty falling asleep, staying asleep, waking from sleep. Denies knowledge of snoring. GASTROINTESTINAL: Denies any type of dysphagia to either liquids or solids. Denies nausea, vomiting, pyrosis, early satiety, abdominal pain, diarrhea, constipation, or changes in stool consistency or caliber. Denies coffee-ground emesis, hematemesis, hematochezia, or melanotic stools. GENITOURINARY: Denies frequency, urgency, nocturia, hematuria or incontinence (Storage/Irritative symptoms.) Low urinary stream, straining to void, urinary intermittency or hesitancy, splitting of the voiding stream, terminal dribbling. ENDOCRINOLOGIC: Denies polyuria, polydipsia, polyphagia or heat/cold intolerances. HEMATOLOGIC: Denies thrombophilia/previous clots, or coagulopathy/bleeding disorders. ONCOLOGIC: Denies personal history of malignancy. DERMATOLOGIC: Denies rashes or pruritus. PSYCHIATRIC: Denies any suicidal or homicidal ideation. Denies hallucinations. PHYSICAL EXAM GENERAL APPEARANCE: The patient is awake, alert, and oriented, in no acute cardiopulmonary distress. NEUROLOGICAL: Cranial nerves II-XII grossly intact. Motor is 5/5 in bilateral upper and lower extremities proximal to distal. No sensory deficits. HEENT: Face is symmetric. Pupils are equal and reactive. Extraocular movements are intact. NECK: Supple. No JVD. No thyromegaly. No submental, submandibular, pre- /postauricular, occipital or supraclavicular lymphadenopathy. CHEST: Normal chest expansion. No Telemetry. LUNGS: Absence of any rales, rhonchi or any wheezing. CARDIOVASCULAR: Regular. S1 and S2 normal. No appreciable rubs, murmurs or gallops. ABDOMEN: Soft, nontender, and nondistended. There is no rebound, voluntary guarding, or rigidity. : Deferred. No Jovel. EXTREMITIES: Non-edematous and not cyanotic. No clubbing. Good capillary refill. SKIN: No skin breakdown. Vital Signs (last 8hr) Date Time Temp Pulse Resp B/P (MAP) Pulse Ox O2 Delivery O2 Flow Rate FiO2 02/25/24 08:00 98.1 57 14 122/76 95 Room Air 02/25/24 05:01 97.9 60 18 103/64 97 Room Air LABS: Laboratory: Test 02/24/24 09:32 02/23/24 16:33 02/23/24 12:14 02/23/24 12:09 Range/Units Sodium Level 142 136-145 mmol/L Potassium Level 3.7 3.5-5.1 mmol/L Chloride Level 105 101-111 mmol/L Carbon Dioxide Level 31 21-32 mmol/L Blood Urea Nitrogen 11 7-18 mg/dL Creatinine 0.9 0.5-1.0 mg/dL Glomerular Filtration Rate Calc 75 >90 mL/min Random Glucose 93 70-105 mg/dL Hemoglobin A1c 5.2 4.0-6.0 % Estimated Average Glucose (eAG) 103 70-126 mg/dL Total Calcium 8.9 8.5-10.1 mg/dL Magnesium Level 1.80 1.6-2.6 mg/dL Total Bilirubin 0.3 0.2-1.0 mg/dL Aspartate Amino Transf (AST/SGOT) 15 10-37 U/L Alanine Aminotransferase (ALT/SGPT) 23 12-78 U/L Alkaline Phosphatase 111 50-136 U/L Total Protein 7.3 6.0-8.3 g/dL Albumin 3.6 3.5-5.0 g/dL Triglycerides Level 128 30-200 mg/dL Cholesterol Level 139 <200 mg/dL LDL Cholesterol 82 0-99 mg/dL HDL Cholesterol 42 35-85 mg/dL Urine Color COLORLESS YELLOW Urine Appearance CLEAR CLEAR Urine pH 6.5 5.0-8.0 Urine Specific [place] 1.046 H 1.001-1.031 Urine Protein 10 H NEGATIVE mg/dL Urine Glucose (UA) NEGATIVE NEGATIVE mg/dL Urine Ketones NEGATIVE NEGATIVE mg/dL Urine Occult Blood NEGATIVE NEGATIVE Urine Nitrate NEGATIVE NEGATIVE Urine Bilirubin NEGATIVE NEGATIVE mg/dL Urine Urobilinogen 0.2 0.2-1.0 mg/dL Urine Leukocyte Esterase NEGATIVE NEGATIVE [place]/uL Urine RBC 2-5 H 0-1 /HPF Urine WBC 2-5 H 0-1 /HPF Urine Squamous Epithelial Cells FEW 0-2 /HPF Urine Bacteria None None Seen /HPF Whole Blood Glucose 129 H 70-110 MG/DL White Blood Count 5.3 4.8-10.8 K/uL Red Blood Count 5.06 4.00-5.50 MIL/uL Hemoglobin 15.0 12.0-16.0 g/dL Hematocrit 44.7 36-48 % Mean Corpuscular Volume 88.3 79-99 fL Mean Corpuscular Hemoglobin 29.6 27.0-33.0 pg Mean Corpuscular Hemoglobin Concent 33.6 32.0-36.0 g/dL Red Cell Distribution Width 12.7 11.0-15.5 % Platelet Count 150 130-400 K/uL Mean Platelet Volume 11.8 H 7.5-10.5 fL Immature Granulocyte % (Auto) 0.2 0-1 % Neutrophils (%) (Auto) 52.7 40.0-77.0 % Lymphocytes (%) (Auto) 38.8 21.0-51.0 % Monocytes (%) (Auto) 6.0 3.0-13.0 % Eosinophils (%) (Auto) 2.1 0.0-8.0 % Basophils (%) (Auto) 0.2 0.0-5.0 % Neutrophils # (Auto) 2.8 1.8-7.7 K/uL Lymphocytes # (Auto) 2.1 1.0-4.8 K/uL Monocytes # (Auto) 0.3 0.1-1.0 K/uL Eosinophils # (Auto) 0.11 0.00-0.70 K/uL Basophils # (Auto) 0.01 0.00-0.20 K/uL Absolute Immature Granulocyte (auto 0.01 0-1 K/uL Nucleated Red Blood Cells 0.0 0.0-0.19 % Total Creatine Kinase 107 # 21-232 U/L Troponin I High Sensitivity 6 4-50 ng/L B-Type Natriuretic Peptide 16 0-100 pg/mL Thyroid Stimulating Hormone (TSH) 1.41 # 0.36-3.74 uIU/mL Current Medications Medications (Trade) Dose Ordered Sig/Ike Route PRN Reason Start Time Stop Time Status Last Admin Dose Admin Acetaminophen (TYLenol 325MG TAB) 650 mg Q4H PRN PO TEMPERATURE GREATER THAN 101.5 02/23/24 15:00 03/24/24 14:59 Aspirin (Aspirin 81mg Ec Tab) 81 mg DAILY PO 02/24/24 09:00 03/25/24 08:59 02/25/24 08:50 81 MG Atorvastatin Calcium (LIPItor 10MG) 10 mg HS PO 02/23/24 21:00 03/24/24 20:59 02/24/24 21:04 10 MG Clopidogrel Bisulfate (plaVIX 75MG) 75 mg DAILY PO 02/24/24 09:00 03/25/24 08:59 02/25/24 08:50 75 MG Famotidine (Pepcid 20mg Tab) 20 mg DAILY PO 02/24/24 09:00 12/5/24 08:59 02/25/24 08:50 20 MG Ondansetron HCl (zoFRAN 4MG INJ) 4 mg Q6H PRN IVP NAUSEA/VOMITING 02/23/24 15:00 03/24/24 14:59 DIAGNOSTICS / RADIOLOGY: [ ] ASSESSMENT: Suspecting CVA POA left side weakness POA suspected seizure ruled out POA Tobacco dependency POA PLAN: [ ] admit: Med surgical Diet: Heart Healthy consult; [place] Tele neurologist: DR Airam Ceron was reconsulted: DR Marx recommended CT cervical spine and loop recorder monitoring outpatient. EEG negative. 2 D Echo with bubble was negative. speech rule out s/s aspiration PT eval and treat pending replaced electrolytes as needed as per protocol fall precaution: call light in reach Medications: Plavix 75 mg po daily and aspirin 81 mg po daily PRN: MEDICATIONS Tylenol 650 mg po every 4 hrs for fever zofran 4 mg IV every 6 hrs for n/v Hydralazine 4mg IV every 4 hrs systolic pressure > 160 Supportive measures: DVT ppx, GI ppx all questions answered further orders as per response to tx Supervising MD: Dr. Case c/d ATTESTATION BY PHYSICIAN I have seen and examined the patient. I reviewed the documentation, medical decision making, and treatment plan as noted by the mid-level provider above. I agree with the findings and plan of care. FAIZA CASE MD, ELIZABETH NP Feb 25, 2024 11:00
--- NOTE | 2024-02-25 11:04 | DS ---
Discharge Summary Hospital Course Summary: This is a 59-year-old female presents in ED with chief complaints of left-sided weakness. Onset started today at 11:45 a.m.. Severity moderate to severe aggravating factors none alleviating factors none patient reports unable to lift of move left sided she denied numbness or tingling. On arrival to ED symptoms were improved she denied any vision changes, confusion, dizziness,. ER initiated stroke alert patient was evaluated by kevin arcos neuro on his assessment NIHSS was 0 So far workup has been negative patient is pending 2D echo with bubble study we will get a EEG patient had a repeat episode at 2:00 a.m. this morning we will reconsult neurologist's kevin arcos neurologist's. Patient is seen and examined with Dr. Case at this time there is no focal or sensory deficits. Patient is reports no episodes overnight. EEG was negative. Second follow-up neurologist's recommended patient will need a loop recorder monitor as outpatient. Workup was done to rule out stroke MRI brain, repeat CT head, CT head and neck were all negative. Patient will be started on dual therapy [id number] mg p.o. daily and [id number] mg p.o. daily for21 days then transitioned to aspirin p.o. only. She will be on PUD GI prophylaxis. Advised patient to avoid driving motor vehicle at this time and we will need need a referral to a neurologist by her PCP patient is clinically stable. [employer] Supervisor(s): REASON: rule cva ORDERING PHYSICIAN: RICHARD CARVAJAL NP PROCEDURE: ECHO [facility] - ECHO 2-D COMPLETE APPROVED REPORT EXAM: Two-dimensional and M-mode echocardiogram with Doppler and color Doppler. INDICATION ICD: CVA Contrast Details Agent/Amount Used: Agitated Saline 2D Dimensions RVDd 3.0 cm LVEF(%) 52.9 (>50%) LVED Vol(simp.) 83.2 mL IVSd 0.7 (0.7-1.1cm) FS(%) 27 % LVES Vol(simp.) 34.9 mL LVDd 4.8 (3.8-5.6cm) LA (2D) 3.9 (1.6-4.0cm) LVEF(%, simp.) 58 % PWd 0.8 (0.7-1.1cm) Ao Root(2D) 2.7 (2.0-3.7cm) LA ESV INDEX (4CH) 20.20 mL/m2 IVSs 0.7 cm LVOT diam 2.1 (1.8-2.4cm) LA ESV INDEX (2CH) 25.70 mL/m2 LVDs 3.5 (2.5-4.0cm) LA ESV INDEX (BP) 21.90 mL/m2 PWs 1.3 cm Deformation Strain Apical 4 23.0 % Apical 2 18.0 % Apical 3 26.0 % Global Strain 22.0 % M-Mode Dimensions EPSS 0.8 cm LA (MM) 4.3 (1.6-4.0cm) Ao Root(MM) 2.8 (2.0-3.7cm) Aortic Valve AoV VTI 0.3 m Ao Mean GR 5.0 mmHg LVOT VTI 0.21 m YISEL (VMAX) 2.2 cm2 YISEL (VTI) 2.2 cm2 Mitral Valve MV E Vmax 76.2 cm/s DECEL Time 254 ms MV A Vmax 77.1 cm/s P 1/2 T 87 ms E/A ratio 1.0 MVA (PHT) 2.5 cm2 TDI E/E' Medial 13.1 E/E' Lateral 9.4 Medial E' Peak V 5.80 cm/s Lateral E' Peak V 8.10 cm/s Pulmonary Valve PV VTI 0.19 m PV Mean GR 2 mmHg Tricuspid Valve TR Vmax 1.7 m/s TR Peak GR 11.2 mmHg Left Ventricle The left ventricle is normal size. GLS -22%, There is normal left ventricular wall thickness. LVEF is 55-60%. The left ventricular diastolic function is normal. Right Ventricle The right ventricle is normal size. The right ventricular systolic function is normal. Atria The left atrium size is normal. Negative bubbel study. No evidence of PFO/ASD by agitated saline. The right atrium size is normal. Aortic Valve The aortic valve is normal in structure. No aortic regurgitation is present. There is no aortic valvular stenosis. Mitral Valve The mitral valve is normal in structure. There is no mitral valve regurgitation noted. There is no mitral valve stenosis. Tricuspid Valve The tricuspid valve is normal in structure. There is no tricuspid valve regurgitation noted. Pulmonic Valve The pulmonary valve is normal in structure. There is no pulmonic valvular regurgitation. Great Vessels The aortic root is normal in size. The IVC was not visualized. Pericardium There is no pericardial effusion. Conclusion LVEF is 55-60%. The left ventricular diastolic function is normal. The left atrium size is normal. Negative bubbel study. No evidence of PFO/ASD by agitated saline. REASON: rule out cva ORDERING PHYSICIAN: RICHARD CARVAJAL NP PROCEDURE: CTA [facility] - CT ANGIO HEAD AND NECK CT ANGIO HEAD AND NECK HISTORY: Left-sided numbness COMPARISON: None TECHNIQUE: CT angiography of the head was performed. The study was performed using angiographic technique with maximum intensity projection reconstruction images. Patient was given 75 cc of Omnipaque through intravenous route. FINDINGS: The ventricles and extraventricular CSF spaces are nondilated for patient's age. There is no midline shift, mass effect or herniation. No acute intracranial bleed is seen. Visualized portion of the paranasal sinuses are grossly within normal limits. No CT evidence of cerebral aneurysm or abnormal arteriovenous communication is seen. Diffuse atherosclerosis changes are present. Bilateral takeoff of the posterior cerebral arteries are seen. Vertebrobasilar arterial system is grossly within normal limits. IMPRESSION: CTA Head 1. Atherosclerotic disease. Otherwise unremarkable CTA of the brain. TECHNIQUE: CT angiography of the neck was performed. The study was performed using angiographic technique with maximum intensity projection reconstruction images. FINDINGS: There are degenerative changes of the cervical spine. Parapharyngeal fat planes are preserved bilaterally. The airway is patent. Normal enhancement of the thyroid gland is noted. Visualized portion of the lung apices are unremarkable. The common, internal and external carotid arteries are visualized. No hemodynamically significant lesion is seen of either extracranial carotid artery system. Both vertebral arteries are seen with antegrade flow. IMPRESSION: CTA Neck 1. Atherosclerotic disease. No hemodynamically significant lesion is seen of either extracranial carotid artery system. REASON: rule cva ORDERING PHYSICIAN: RICHARD CARVAJAL NP PROCEDURE: BRAIN WO - MR BRAIN WO CON MR BRAIN WO CON HISTORY: CVA COMPARISON: None TECHNIQUE: MRI of the brain was performed utilizing multiple pulse sequences in axial, coronal and sagittal planes. Patient was not given contrast through intravenous route. FINDINGS: The ventricles and extraventricular CSF spaces are nondilated for patient's age. There is no midline shift, mass effect or herniation. No subacute hemorrhage is seen. 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 There is questionable left pontine infarct. No MR evidence of acute infarct is seen in the diffusion weighted images. Cerebellar tonsils are in normal position. No evidence of mucoperiosteal thickening is seen of the visualized paranasal sinuses. No MR evidence of a mass lesion is seen in this noncontrast study. IMPRESSION: 1. No MR evidence of acute infarct is seen in the diffusion weighted images. REASON: recurrent episodes of left sided weakness ORDERING PHYSICIAN: REMIGIO FORDE PROCEDURE: HEAD WO - CT HEAD/BRAIN W/O CONTRAST CT HEAD/BRAIN W/O CONTRAST HISTORY: Left-sided weakness COMPARISON: None TECHNIQUE: Multiple sequential axial images of the head were obtained from the base of the skull through vertex. Patient was not given contrast through intravenous route. FINDINGS: The ventricles and extraventricular CSF spaces are nondilated for patient's age. There is no midline shift, mass effect or herniation. No acute intracranial bleed is seen. Visualized portion of the paranasal sinuses are grossly within normal limits. IMPRESSION: 1. No acute intracranial bleed is seen. Assessment/Plan: discharged dx's; Suspecting CVA POA ruled out left side weakness POA suspected seizure ruled out POA Tobacco dependency POA PLAN: ADMISSION DATE: February 23, 2024 DISCHARGE DATE: February 25, 2024 DISPOSITION: Home CONDITION: Stable SORTER/ASSAY TECH(S): Tele neuro: DR Kaci Ocampo FOLLOW UP APPOINTMENT(S): PCP 2-[address] Mazin Tucker will need a cardiogiolist Loop Monitoring for arrhythmias and neurologist referral PROCEDURES: None IMAGING (S) report attached to summary : echo with bubble study, EEG, Head CT Head neck Ct MRI brain Cervical spine CT MICROBIOLOGY: report attached to summary; ACTIVITY: ab burke HOME MEDICATIONS: reviewed CHANGES ON HOME MEDICATIONS: None NEW MEDICATIONS: [id number] mg p.o. daily, mg p.o. daily for21 days then will be on only ASA , famotidine 20 mg po daily TEACHING: smoking cessation, modified diet and exercise Emergency instructions: The patient was instructed to present to the nearest Emergency Department or call 911 should their symptoms return or worsen. Home Medications: Reported Medications Acetaminophen (Tylenol) 500 Mg Tab, 1 TAB PO Q6HPRN PRN for pain or fever for 15 Days, #60 TAB 0 Refills 02/24/24 Discontinued Scripts Azithromycin (Azithromycin) 500 Mg Tablet, 500 MG PO DAILY for 5 Days, #5 TAB Prov:KATERINA ALICEA MD 01/14/24 Acetaminophen (Acetaminophen ER) 650 Mg Tablet.er, 650 MG PO TID, #30 TAB Prov:JORDAN,EMELY Peter PSYCHOLOGIST [employer] 06/25/23 Sulfamethoxazole/Trimethoprim (Bactrim Ds Tablet) 1 Each Tablet, 1 TAB PO BID for uti for 5 Days, #10 TAB Prov:PARKER GRIFFIN MD 09/07/22 Lactulose (Lactulose) 10 Gm/15 Ml Solution, 10 GM PO BID for 5 Days, #120 ML Prov:PARKER GRIFFIN MD 09/07/22 Naproxen (Naproxen) 375 Mg Tablet.dr, 375 MG PO BID PRN for headache for 10 Days, #20 TAB Prov:MOHIT BAUMANN MD 06/25/22 Sulfamethoxazole/Trimethoprim (Bactrim Ds Tablet) 1 Each Tablet, 1 TAB PO BID for 7 Days, #14 TAB Prov:MOHIT BAUMANN MD 06/25/22 Ferrous Sulfate (Ferrous Sulfate) 325 Mg Ectab, 325 MG PO DAILY, #60 TAB.EC Prov:RICHARD STRAUSS MD 07/04/15 New Medications: Aspirin (Aspirin) 81 Mg Tab.chew 1 TAB PO DAILY for 30 Days, #30 TAB 0 Refills Atorvastatin Calcium (Lipitor) 20 Mg Tab 1 TAB PO DAILY for 30 Days, #30 TAB 0 Refills Clopidogrel Bisulfate (Plavix) 75 Mg Tablet 75 MG PO DAILY for 20 Days, #20 TAB Famotidine (Famotidine) 20 Mg Tablet 20 MG PO DAILY for 30 Days, #30 TAB Continued Medications: Acetaminophen (Tylenol) 500 Mg Tab 1 TAB PO Q6HPRN PRN for pain or fever for 15 Days, #60 TAB 0 Refills Time spent arranging discharge: 31-60 minutes ATTESTATION BY PHYSICIAN I have seen and examined the patient. I reviewed the documentation, medical decision making, and treatment plan as noted by the mid-level provider above. I agree with the findings and plan of care. FAIZA CASE MD, [facility] [employer] DEVELOPER Feb 25, 2024 11:04
--- NOTE | 2024-02-25 11:12 | HMCIMG ---
CT CERVICAL SPINE W/O CONTRAST HISTORY: Left-sided weakness COMPARISON: None TECHNIQUE: Multiple sequential axial images of the cervical spine were obtained including post processing sagittal and coronal reconstruction images. Patient was not given contrast through intravenous route. FINDINGS: There is straightening of normal lordotic cervical curvature which may be related to muscle spasm or positioning. There is no loss of vertebral height. Evaluation for disc and cord pathology is limited with CT study. No evidence of fracture or dislocation is seen. There are degenerative changes cervical spine spondylosis. Mild anterior subluxation is seen of C3 3 over C4 and C4 over C5. IMPRESSION: 1. No fracture is seen. DJD. CT was performed with one or more following dose reduction techniques: automated exposure control, adjustment of the mA and kv according to patient's size, or use of a iterative reconstruction technique.
[2024-02-25 12:00] VITALS: BP 110/66; PULSE 54; RESP 16; TEMP 97.6
== END 2024-02-25 15:20 | disposition home or self-care (01) | DRG 948 ==
LOC: EDH 12:00 → EDHIP 16:28 → 4AH 02-24 01:50
PROVIDERS: ADMIT Internal Medicine; ATTEND Internal Medicine
PROC: 4A00X4Z Measurement of Central Nervous Electrical Activity, External Approach (ICD-10-PCS; principal; 2024-02-24)
DX: R53.1 Weakness (principal); F17.200 Nicotine dependence, unspecified, uncomplicated; Z88.0 Allergy status to penicillin; Z88.8 Allergy status to other drugs, medicaments and biological substances; Z90.49 Acquired absence of other specified parts of digestive tract
CPT/HCPCS: 36415; 70450; 70496; 70498; 70551; 71045; 72125; 80048; 80053; 80061; 81001; 82550; 82948; 83036; 83735; 83880; 84443; 84484; 85025; 92522; 92610; 93005; 93306; 93356; 95819; G0378; Q9967; A4216

== ENCOUNTER 2024-04-21 12:48 | Emergency (ER) | payer BC ==
[~2024-04-21] VITALS: Ht 157.5 cm; Wt 77.1 kg
[~2024-04-21 12:48] MED LIST changes: -ACET-2893 PO; +ACET-66 PO; +ASPI-1197 PO; +ATOR10 PO; -AZIT500T4 PO; +CLOP-31 PO; +FAMO20TA8 PO; -FERS325 PO; -LACT-441 PO; -NAPR-1505 PO; -SULF1TAB42 PO
--- NOTE | 2024-04-21 13:25 | HMCIMG ---
. PORTABLE CHEST RADIOGRAPH INDICATION: sob COMPARISON: 02/23/2024 FINDINGS: Heart size is normal. The pulmonary vascularity and wilfrid appear normal. No abnormal pulmonary parenchymal opacity or consolidation identified. No significant pleural effusion noted. No pneumothorax detected. IMPRESSION: No radiographic evidence for any acute cardiopulmonary process.
[2024-04-21] MEDS: IpraTROPium/alBUTERol SULFATE 3 ML SOLUTION IH ONE (13:34)
[2024-04-21 13:35] VITALS: PULSE 63; RESP 20
[2024-04-21 13:39] LABS: COVID19 (SARS ANTIGEN RAPID) PRESUMPTIVE NEGATIVE (NEGATIVE)
[2024-04-21 14:37] LABS: INFLUENZA TYPE A Negative For Type A (NEGATIVE); INFLUENZA TYPE B Negative For Type B (NEGATIVE)
[2024-04-21] MEDS ORDERED: BENZ-39 PO (14:42)
[2024-04-21] MEDS ORDERED: GUAI-484 PO (14:42)
--- NOTE | 2024-04-21 14:43 | ERN ---
General Chief Complaint: Congestion Stated Complaint: COUGH, CONGESTION, TROUBLE BREATHING FEVER X 1 WK Time Seen by MD: 12:59 Time Seen by Midlevel: 12:59 Source: patient History of Present Illness Initial Comments Patient is a 59-year-old female presenting to the emergency department with flu- like symptoms. Symptoms consist of cough, congestion, difficulty breathing, and fever that has been ongoing for the past week. is sick with similar symptoms. Denies any other concerns at this time. Allergies: Coded Allergies: Penicillins (Unverified Allergy, Unknown, RASH, 04/17/18) Quinolones (Unverified Allergy, Unknown, HIVES, 07/03/15) Home Meds Active Scripts Famotidine (Famotidine) 20 Mg Tablet, 20 MG PO DAILY for 30 Days, #30 TAB Prov:RICHARD CARVAJAL NP 02/24/24 Atorvastatin Calcium (LIPITOR) 20 Mg Tab, 1 TAB PO DAILY for 30 Days, #30 TAB 0 Refills Prov:RICHARD CARVAJAL NP 02/24/24 Aspirin (Aspirin) 81 Mg Tab.chew, 1 TAB PO DAILY for 30 Days, #30 TAB 0 Refills Prov:RICHARD CARVAJAL NP 02/24/24 Clopidogrel Bisulfate (Plavix) 75 Mg Tablet, 75 MG PO DAILY for 20 Days, #20 TAB Prov:RICHARD CARVAJAL NP 02/24/24 Reported Medications Acetaminophen (Tylenol) 500 Mg Tab, 1 TAB PO Q6HPRN PRN for pain or fever for 15 Days, #60 TAB 0 Refills 02/24/24 Past Medical History Past Medical History: CAD, GERD, High Cholesterol Medical History Other: ANEMIA Past Surgical History: Hysterectomy, Cholecystectomy, Social History Social History: Negative ROS Dictation CONSTITUTIONAL: Negative except for HPI HEAD/FACE: Negative except for HPI EENT: Negative except for HPI RESPIRATORY: Negative except for HPI GASTROINTESTINAL/ABDOMINAL: Negative except for HPI GENITOURINARY: Negative except for HPI MUSCULOSKELETAL: Negative except for HPI INTEGUMENTARY: Negative except for HPI NEUROLOGICAL/PSYCH: Negative except for HPI HEMATOLOGIC/LYMPHATIC: Negative except for HPI All Systems Negative, Except as noted above. 13 point review of systems assessed and all negative except for above. Physical Exam Physical Exam Dictation Vital Signs reviewed General Appearance: Alert, oriented x 3, no acute distress, well developed, nourished. Head and Face: non-traumatic. Eyes: PERRL, pink conjunctivas, eyelid no trauma, anterior chamber with arcus senilis. Ears: Pinnas intact and no signs of trauma or erythema ear canals clear and no discharge TM no erythema Nose: No discharge, no bleeding. Oropharynx: Mouth normal, tongue pink, pharynx clear,no erythema, tonsils no exudates, no abscesses noted, mucous membrane moist Neck: Supple, non-tender, no thyromegaly, no masses, no JVD, no bruits Breast:Deferred Chest:No tenderness, no crepitus, no paradoxical movement, no retractions Lungs:Clear, well-ventilated, symmetric, no rales, no wheezing, no rhonchi, no stridor, good breath sounds bilaterally Heart: Regular rate, regular rhythm, no murmur, no gallops Vascular: no peripheral edema, Abdomen: Soft, positive bowel sounds, nondistended, no guarding, nontender, no rebound, no masses no hepatomegaly, no splenomegaly, no Zhang's sign, no hernias. Rectal: Deferred Genital: Deferred Neurological: Normal speech, motor function intact, sensory function intact Musculoskeletal: Neck nontender, full range of motion, back nontender, full range of motion, Extremities: nontender, full range of motion Skin: Color pink, dry, no turgor, no rash, no lacerations, no abrasions, no contusions. Lymphatic: Deferred Results Laboratory and Microbiology Lab and Micro Result Laboratory Tests Test 04/21/24 13:05 04/21/24 13:10 Influenza Type A Antigen Negative For Type A Influenza Type B Antigen Negative For Type B SARS-CoV-2 Antigen (Rapid) PRESUMPTIVE NEGATIVE Group A Streptococcus Rapid negative (NEGATIVE) Labs Reviewed?: Yes MDM MDM: Differential diagnosis: Pneumonia, viral syndrome, strep, upper respiratory infection There are no social concerns with this patient. Prescription drug management Prescriptions will include: Mucinex and Tessalon Perles Medical management and examination interpretation discussions were had by me with other qualified healthcare professionals as indicated for the patient's care. ED Course Orders Procedure Category Date Status Time Covid19 (Sars Antigen LAB 04/21/24 Complete Rapid) 12:57 Influenza Type A & B, LAB 04/21/24 Complete Rapid 12:57 Chest 1vw RAD 04/21/24 Resulted 12:59 Ipratropium/Albuterol PHA 04/21/24 Complete Neb (Duoneb) 13:30 Rapid (Group A Strep) LAB 04/21/24 Complete 13:11 Current Medications Medications (Trade) Dose Ordered Sig/Ike Route PRN Reason Start Time Stop Time Status Last Admin Dose Admin Albuterol (DUOneb) 1 UDVIAL ONCE ONCE IH 04/21/24 13:30 04/21/24 13:31 DC 04/21/24 13:34 Vital Signs Date Time Temp Pulse Resp B/P (MAP) Pulse Ox O2 Delivery O2 Flow Rate FiO2 04/21/24 13:35 63 20 04/21/24 13:10 98.2 66 16 106/79 98 Room Air* 0 21 04/21/24 13:00 98.8 66 16 97 Room Air DX & DISP Disposition: Discharge Departure Impression: Primary Impression: Viral syndrome Condition: Stable Scripts Guaifenesin/Pseudoephedrne HCl (Mucinex D ER 1,200-120 mg Tab) 1,200 Mg-120 Mg Tab.er.12h 1 TAB PO BID for 10 Days, #20 TAB 0 Refills Prov: SABI AMARAL 04/21/24 Benzonatate (Tessalon Perles) 100 Mg Cap 100 MG PO TID for cough for 10 Days, #30 CAP 0 Refills Prov: SABI AMARAL 04/21/24 Additional Instructions: You have tested negative for influenza a, influenza B, COVID-19, and strep. Your chest x-ray does not show any evidence of pneumonia. Symptoms are most likely viral in nature. Follow up with your primary care doctor in 2-3 days for repeat evaluation. Return to the ER for any new or worsening symptoms. Referrals: EFRAIN BENITES (PCP) Time of Disposition: 14:40 I have reviewed the case, and I agree with, Diagnosis and Plan I performed the substantive portion of the visit. I have reviewed and personally made and approve the management plan that is documented in the note by myself or the DOUGLAS. I acknowledge for responsibility for the patient's management plan. SABI AMARAL Apr 21, 2024 14:43
[2024-04-21 15:10] VITALS: BP 108/75; PULSE 75; RESP 16; TEMP 98.3; O2SAT 98
== END 2024-04-21 15:18 | disposition home or self-care (01) ==
LOC: EDH 12:48
DX: B34.9 Viral infection, unspecified (principal); R05.9 Cough, unspecified; R09.81 Nasal congestion; I25.10 Atherosclerotic heart disease of native coronary artery without angina pectoris; K21.9 Gastro-esophageal reflux disease without esophagitis; E78.00 Pure hypercholesterolemia, unspecified; Z79.02 Long term (current) use of antithrombotics/antiplatelets; Z79.82 Long term (current) use of aspirin; Z79.899 Other long term (current) drug therapy; Z88.0 Allergy status to penicillin; Z90.49 Acquired absence of other specified parts of digestive tract; Z90.710 Acquired absence of both cervix and uterus; Z20.822 Contact with and (suspected) exposure to COVID-19
CPT/HCPCS: 71045; 87426; 87804; 87880; 94640; 99283

== ENCOUNTER 2024-05-17 17:04 | Emergency (ER) | payer BC ==
[~2024-05-17] VITALS: Ht 157.5 cm; Wt 77.1 kg
[~2024-05-17 17:04] MED LIST changes: +BENZ-39 PO; +GUAI-484 PO
--- NOTE | 2024-05-17 18:06 | ERN ---
ED Note History of Present Illness Stated Complaint: MIGRANES,HEAD PAIN Chief Complaint: Headache Time Seen by MD: 17:05 Time Seen by Midlevel: 17:05 Dictation: The Patient is a 59-year-old female with a history of TIA, migraines, hysterectomy who presents to the emergency department with three days of posterior headache associated with nausea and nonbloody vomiting onset today. Patient denies any head trauma. Denies any fevers. Reports this feels like a migraine headache. Took Excedrin at home with no relief. Reports poor medical compliance because she does not like to take a lot of medications. Allergies: Coded Allergies: Penicillins (Unverified Allergy, Unknown, RASH, 04/17/18) Quinolones (Unverified Allergy, Unknown, HIVES, 07/03/15) Home Meds Active Scripts Guaifenesin/Pseudoephedrne HCl (Mucinex D ER 1,200-120 mg Tab) 1,200 Mg-120 Mg Tab.er.12h, 1 TAB PO BID for 10 Days, #20 TAB 0 Refills Prov:SABI AMARAL 04/21/24 Benzonatate (Tessalon Perles) 100 Mg Cap, 100 MG PO TID for cough for 10 Days, #30 CAP 0 Refills Prov:SABI AMARAL 04/21/24 Famotidine (Famotidine) 20 Mg Tablet, 20 MG PO DAILY for 30 Days, #30 TAB Prov:RICHARD CARVAJAL NP 02/24/24 Atorvastatin Calcium (LIPITOR) 20 Mg Tab, 1 TAB PO DAILY for 30 Days, #30 TAB 0 Refills Prov:RICHARD CARVAJAL NP 02/24/24 Aspirin (Aspirin) 81 Mg Tab.chew, 1 TAB PO DAILY for 30 Days, #30 TAB 0 Refills Prov:RICHARD CARVAJAL NP 02/24/24 Clopidogrel Bisulfate (Plavix) 75 Mg Tablet, 75 MG PO DAILY for 20 Days, #20 TAB Prov:RICHARD CARVAJAL NP 02/24/24 Reported Medications Acetaminophen (Tylenol) 500 Mg Tab, 1 TAB PO Q6HPRN PRN for pain or fever for 15 Days, #60 TAB 0 Refills 02/24/24 Past Medical History Past Medical History: CAD, GERD, High Cholesterol, Migraines Additional Past Medical Hx: ANEMIA Surgical History: Hysterectomy, Cholecystectomy, Social History: Negative RN Note Reviewed/Agreed w/PFSH: Yes Review of System Dictation Constitutional: Negative for fever,chills, and weight loss Eyes: Negative for injury, pain,redness, and discharge ENT: Negative for injury,pain or swelling Cardiovascular: Negative for chest pain, palpitations, and edema Respiratory: Negative for shortness of breath, cough, and wheezing, Abdomen/GI: Negative for abdominal pain,diarrhea, and constipation positive for nausea and vomiting Back: Negative for injury and pain : Negative for injury, bleeding and discharge MS/Extremity: Negative for injury and deformity Skin: Negative for rash, and discoloration Neuro: Negative for weakness, numbness, tingling, and seizure positive for headache Psych: Negative for suicide ideation, homicidal ideation, and hallucinations Initial Vital Sign VS Vital Signs Date Time Temp Pulse Resp B/P (MAP) Pulse Ox O2 Delivery O2 Flow Rate FiO2 05/17/24 17:10 97.9 61 16 147/82 97 Room Air 16.0 05/17/24 18:37 21 Physical Exam Dictation Vital Signs reviewed General Appearance: Alert, oriented x 3, no acute distress, well developed, nourished. Head and Face: non-traumatic. Eyes: PERRL, pink conjunctivas, eyelid no trauma, anterior chamber with arcus senilis. Ears: Pinnas intact and no signs of trauma or erythema ear canals clear and no discharge TM no erythema Nose: No discharge, no bleeding. Oropharynx: Mouth normal, tongue pink. pharynx clear,no erythema, tonsils no exudates, no abscesses noted, mucous membrane moist Neck: Supple, non-tender, no thyromegaly, no masses, no JVD, no bruits Breast:Deferred Chest:No tenderness, no crepitus, no paradoxical movement, no retractions Lungs:Clear, well-ventilated, symmetric, no rales, no wheezing, no rhonchi, no stridor, good breath sounds bilaterally Heart: Regular rate, regular rhythm, no murmur, no gallops Vascular: no peripheral edema, Abdomen: Soft, positive bowel sounds, nondistended, no guarding, nontender, no rebound, no masses no hepatomegaly, no splenomegaly, no Zhang's sign, no hernias. Rectal: Deferred Genital: Deferred Neurological: Normal speech, motor function intact, sensory function intact , no slurred speech, no facial droop, upper extremities equal and strength, lower extremities equal and strength Musculoskeletal: Neck nontender, full range of motion, back nontender, full range of motion, Extremities: nontender, full range of motion Skin: Color pink, dry, no turgor, no rash, no lacerations, no abrasions, no contusions. Lymphatic: Deferred Results (Laboratory/Radiology) Laboratory/Radiology Laboratory Tests Test 05/17/24 18:58 05/17/24 19:52 White Blood Count 6.5 K/uL (4.8-10.8) Red Blood Count 4.94 MIL/uL (4.00-5.50) Hemoglobin 14.5 g/dL (12.0-16.0) Hematocrit 44.1 % (36-48) Mean Corpuscular Volume 89.3 fL (79-99) Mean Corpuscular Hemoglobin 29.4 pg (27.0-33.0) Mean Corpuscular Hemoglobin Concent 32.9 g/dL (32.0-36.0) Red Cell Distribution Width 13.2 % (11.0-15.5) Platelet Count 117 K/uL (130-400) L Mean Platelet Volume 11.7 fL (7.5-10.5) H Immature Granulocyte % (Auto) 0.3 % (0-1) Neutrophils (%) (Auto) 55.5 % (40.0-77.0) Lymphocytes (%) (Auto) 35.7 % (21.0-51.0) Monocytes (%) (Auto) 6.5 % (3.0-13.0) Eosinophils (%) (Auto) 1.5 % (0.0-8.0) Basophils (%) (Auto) 0.5 % (0.0-5.0) Neutrophils # (Auto) 3.6 K/uL (1.8-7.7) Lymphocytes # (Auto) 2.3 K/uL (1.0-4.8) Monocytes # (Auto) 0.4 K/uL (0.1-1.0) Eosinophils # (Auto) 0.10 K/uL (0.00-0.70) Basophils # (Auto) 0.03 K/uL (0.00-0.20) Absolute Immature Granulocyte (auto 0.02 K/uL (0-1) Nucleated Red Blood Cells 0.0 % (0.0-0.19) Sodium Level 141 mmol/L (136-145) Potassium Level 3.7 mmol/L (3.5-5.1) Chloride Level 105 mmol/L (101-111) Carbon Dioxide Level 31 mmol/L (21-32) Blood Urea Nitrogen 19 mg/dL (7-18) H Creatinine 1.0 mg/dL (0.5-1.0) Glomerular Filtration Rate Calc 66 mL/min (>90) Random Glucose 100 mg/dL (70-105) Total Calcium 8.9 mg/dL (8.5-10.1) Urine Color LIGHT-YELLOW (YELLOW) Urine Appearance CLEAR (CLEAR) Urine pH 6.5 (5.0-8.0) Urine Specific [place] 1.020 (1.001-1.031) Urine Protein NEGATIVE mg/dL (NEGATIVE) Urine Glucose (UA) NEGATIVE mg/dL (NEGATIVE) Urine Ketones NEGATIVE mg/dL (NEGATIVE) Urine Occult Blood NEGATIVE (NEGATIVE) Urine Nitrate NEGATIVE (NEGATIVE) Urine Bilirubin NEGATIVE mg/dL (NEGATIVE) Urine Urobilinogen 0.2 mg/dL (0.2-1.0) Urine Leukocyte Esterase NEGATIVE Fermin/uL REASON: headache, nausea, ORDERING PHYSICIAN: KOBI SOUZA PROCEDURE: HEAD WO - CT HEAD/BRAIN W/O CONTRAST CT HEAD WITHOUT CONTRAST INDICATION: Headache and nausea TECHNIQUE: Noncontrast axial helical CT images from the vertex through the skull base using 5 mm slice thickness without contrast material. CT was performed with one or more of the following dose reduction techniques: Automated exposure control, adjustment of the mA and/or kV according to patient size, or use of iterative reconstruction technique. COMPARISON: None FINDINGS: Tiny perivascular space near the right external capsule. The cerebral and cerebellar hemispheres are age-appropriate in appearance. No evidence for abnormal extra-axial fluid collections or masses. The ventricles and sulci are normal in size and configuration. No evidence for intracranial parenchymal, epidural, or subdural hemorrhage, mass effect or midline shift. The solorio-white matter differentiation is well preserved. No secondary evidence to suggest acute ischemia. The brainstem and cerebellum appear normal. The visualized orbits appear unremarkable. The visible paranasal sinuses and mastoid air cells are clear. The calvarium appears normal. IMPRESSION: No acute intracranial process identified. Labs Reviewed?: Yes ED Course ED Course Orders Procedure Category Date Status Time Cbc With Differential LAB 05/17/24 Complete 17: Basic Metabolic Panel LAB 05/17/24 Complete 17:27 Ct Head/Brain W/O CT 05/17/24 Resulted Contrast 17:27 0.9%Nacl 1000ml (Ns PHA 05/17/24 Complete 1000ml) 17:30 Acetaminophen 500mg PHA 05/17/24 Complete Tab (Tylenol 500mg T 17:30 Metoclopramide 10 PHA 05/17/24 Complete Mg/2 Ml Vial (Reglan 1 17:30 Diphenhydramine Hcl PHA 05/17/24 Complete (Benadryl Inj) 17:30 Urinalysis Profile LAB 05/17/24 Complete 20:24 Current Medications Medications (Trade) Dose Ordered Sig/Ike Route PRN Reason Start Time Stop Time Status Last Admin Dose Admin Acetaminophen (TYLenol 500MG TAB) 1,000 mg ONCE ONCE PO 05/17/24 17:30 05/17/24 17:31 DC 05/17/24 20:29 Diphenhydramine HCl (BENAdryl INJ) 25 mg ONCE ONCE IV 05/17/24 17:30 05/17/24 17:31 DC 05/17/24 20:29 Metoclopramide HCl (regLAN 10MG IV) 10 mg ONCE ONCE IVP 05/17/24 17:30 05/17/24 17:31 DC 05/17/24 20:29 Sodium Chloride 1,000 ml @ 0 mls/hr ONCE ONCE IV 05/17/24 17:30 05/17/24 17:31 DC 05/17/24 20:28 Vital Signs Date Time Temp Pulse Resp B/P (MAP) Pulse Ox O2 Delivery O2 Flow Rate FiO2 05/17/24 18:37 97.9 61 16 147/82 94 Room Air* 0 21 05/17/24 17:10 97.9 61 16 147/82 97 Room Air 16.0 Medical Decision Making MDM The Patient is a 59-year-old female with a history of TIA, migraines on Topiramate, hysterectomy who presents to the emergency department with three days of posterior headache associated with nausea and nonbloody vomiting onset today. Patient denies any head trauma. Denies any fevers. Reports this feels like a migraine headache. Took Excedrin at home with no relief. Reports poor medical compliance because she does not like to take a lot of medications. CBC showed no leukocytosis, no anemia, chemistry showed no electrolyte imbalance, urinalysis unremarkable, CT showed no acute intracranial process identified, . Patient continues neurologically intact. Headache improved. Patient instructed to follow up with her neurologist. Reports she follows up with Dr. Aparicio. Differential diagnosis: Intracerebral hemorrhage, dehydration, migraine headache, electrolyte imbalance Need for hospitalization: Patient does not meet criteria for hospitalization. There are no social concerns with this patient. DX & DISP Disposition: Discharge Departure Impression: Primary Impression: Headache Additional Impression: Migraine headache Condition: Stable Additional Instructions: Is follow up with your neurologist. Follow up with your PCP. If symptoms worsen please return to ER. You can continue taking your medications as prescribed. FOLLOW-UP WITH PRIMARY CARE PROVIDER IN 1 TO 2 DAYS. TAKE MEDICATIONS DIRECTED HERE IN THE EMERGENCY ROOM. OKAY TO CONTINUE HOME MEDICATIONS UNLESS OTHERWISE DISCUSSED DURING YOUR VISIT IN THE EMERGENCY ROOM TODAY. RETURN TO YOUR NEAREST EMERGENCY ROOM IF SYMPTOMS WORSEN OR IF THERE IS NO IMPROVEMENT. CALL 911 IF YOU NEED IMMEDIATE ASSISTANCE. TAKE TYLENOL OR MOTRIN [id number] NEEDED AND IF NO CONTRAINDICATIONS ARE PRESENT. INCREASE ORAL HYDRATION. A WOUND CULTURE OR URINE CULTURE WAS ORDERED HERE IN THE EMERGENCY ROOM DEPARTMENT PLEASE FOLLOW-UP WITH PRIMARY CARE PROVIDER AND ADVISE THEM TO GET REPEAT PORTS FROM OUR FACILITY. IF YOU HAD ANY ISIAH WRAP/SPLINTS THAT WERE APPLIED HERE, PLEASE DO NOT REMOVE THEM UNTIL YOU SEE YOUR PRIMARY CARE OR SPECIALTY. Referrals: EFRAIN BENITES (PCP) Time of Disposition: 20:57 I have reviewed the case, and I agree with, Diagnosis and Plan KOBI SOUZA May 17, 2024 18:05
--- NOTE | 2024-05-17 18:10 | HMCIMG ---
CT HEAD WITHOUT CONTRAST INDICATION: Headache and nausea TECHNIQUE: Noncontrast axial helical CT images from the vertex through the skull base using 5 mm slice thickness without contrast material. CT was performed with one or more of the following dose reduction techniques: Automated exposure control, adjustment of the mA and/or kV according to patient size, or use of iterative reconstruction technique. COMPARISON: None FINDINGS: Tiny perivascular space near the right external capsule. The cerebral and cerebellar hemispheres are age-appropriate in appearance. No evidence for abnormal extra-axial fluid collections or masses. The ventricles and sulci are normal in size and configuration. No evidence for intracranial parenchymal, epidural, or subdural hemorrhage, mass effect or midline shift. The solorio-white matter differentiation is well preserved. No secondary evidence to suggest acute ischemia. The brainstem and cerebellum appear normal. The visualized orbits appear unremarkable. The visible paranasal sinuses and mastoid air cells are clear. The calvarium appears normal. IMPRESSION: No acute intracranial process identified.
[2024-05-17 19:09] LABS: BASOPHILS # (AUTO) 0.03 K/uL (0.00-0.20); BASOPHILS % (AUTO) 0.5 % (0.0-5.0); EOSINOPHILS % (AUTO) 1.5 % (0.0-8.0); HEMATOCRIT 44.1 % (36-48); IMMATURE GRANULOCYTE ABSOLUTE 0.02 K/uL (0-1); LYMPHOCYTES # (AUTO) 2.3 K/uL (1.0-4.8); LYMPHOCYTES % (AUTO) 35.7 % (21.0-51.0); MEAN CORPUSCULAR HEMOGLOBIN 29.4 pg (27.0-33.0); MEAN CORPUSCULAR HGB CONC 32.9 g/dL (32.0-36.0); MEAN CORPUSCULAR VOLUME 89.3 fL (79-99); MONOCYTES # (AUTO) 0.4 K/uL (0.1-1.0); MONOCYTES % (AUTO) 6.5 % (3.0-13.0); NEUTROPHILS # (AUTO) 3.6 K/uL (1.8-7.7); NEUTROPHILS % (AUTO) 55.5 % (40.0-77.0); PLATELET COUNT (AUTO) 117 K/uL (130-400); RED BLOOD CELL COUNT(AUTO) 4.94 MIL/uL (4.00-5.50); RED CELL DISTRIBUTION WIDTH 13.2 % (11.0-15.5); WHITE BLOOD COUNT (AUTO) 6.5 K/uL (4.8-10.8)
[2024-05-17 19:10] LABS: POTASSIUM 3.7 mmol/L (3.5-5.1)
[2024-05-17] MEDS: 0.9%NACL 1000ML 1,000 ML IV ONE (20:28)
[2024-05-17] MEDS: DiphenhydrAMINE HCL 50 MG/ML VIAL IV ONE (20:29)
[2024-05-17] MEDS: metoCLOPRAmide 10 MG/2 ML VIAL IVP ONE (20:29)
[2024-05-17] MEDS: acetaMINOPHEN 500 MG TABLET PO ONE (20:29)
[2024-05-17 20:34] LABS: APPEARANCE,URINE CLEAR (CLEAR); BILIRUBIN,URINE NEGATIVE (NEGATIVE); COLOR,URINE LIGHT-YELLOW (YELLOW); GLUCOSE, URINE (UA) NEGATIVE (NEGATIVE); KETONES,URINE NEGATIVE (NEGATIVE); LEUKOCYTE ESTERASE ,URINE NEGATIVE Leu/uL (NEGATIVE); NITRATE,URINE NEGATIVE (NEGATIVE); OCCULT BLOOD,URINE NEGATIVE (NEGATIVE); PH,URINE 6.5 (5.0-8.0); PROTEIN,URINE NEGATIVE (NEGATIVE); UROBILINOGEN,URINE 0.2 mg/dL (0.2-1.0)
[2024-05-17 20:40] LABS: ADD UA MICROSCOPIC NO
[2024-05-17 21:32] VITALS: BP 138/74; PULSE 67; RESP 16; TEMP 97.9; O2SAT 97
== END 2024-05-17 21:36 | disposition home or self-care (01) ==
LOC: EDH 17:04
DX: G43.909 Migraine, unspecified, not intractable, without status migrainosus (principal); R11.2 Nausea with vomiting, unspecified; I25.10 Atherosclerotic heart disease of native coronary artery without angina pectoris; E78.00 Pure hypercholesterolemia, unspecified; K21.9 Gastro-esophageal reflux disease without esophagitis; Z88.0 Allergy status to penicillin; Z79.82 Long term (current) use of aspirin; Z79.02 Long term (current) use of antithrombotics/antiplatelets; Z79.899 Other long term (current) drug therapy; Z90.710 Acquired absence of both cervix and uterus; Z90.49 Acquired absence of other specified parts of digestive tract; Z98.890 Other specified postprocedural states
CPT/HCPCS: 99284; 96374; 70450; 96375; 80048; 85025; 81003; 36415; J1200; J7030; J2765

== ENCOUNTER 2024-07-02 15:20 | Emergency (ER) | payer BC ==
[~2024-07-02] VITALS: Ht 157.5 cm; Wt 80.3 kg
[2024-07-02] MEDS ORDERED: GABA-529 PO (16:37)
--- NOTE | 2024-07-02 16:38 | ERN ---
ED Note History of Present Illness Stated Complaint: PAIN IN LEFT SIDE ALL THE WAY DOWN TO HER LEG Chief Complaint: Lower Extremity Pain/Injury Time Seen by MD: 15:23 Dictation: History of present illness: 59-year-old female with past medical history of TIA on blood thinners, migraine, CAD, GERD presented to ED with complaints of pain in left lower extremity for past 2 days. As per the patient she has been experiencing left lower extremity numbness for the past 15 years. But since she had TIA last February, she is scared that this episode of left lower extremity numbness/pain is another TIA. She rates the pain 6/10 that comes and goes over the lateral side of left lower extremity. There is no back pain, no radiation no shooting pain in lower extremity. The pain is associated with the numbness, paresthesia to extend that even slightest touch, cold exposure cause her pain. She denies any trauma, fever, changes to skin color, any fall, headache, motor weakness. Allergies: Coded Allergies: Penicillins (Unverified Allergy, Unknown, RASH, 04/17/18) Quinolones (Unverified Allergy, Unknown, HIVES, 07/03/15) Home Meds Active Scripts Gabapentin (Gabapentin) 100 Mg Capsule, 1 CAP PO BID for 10 Days, #20 CAP 0 Refills Prov:SOUMYA FOSTER MD 07/02/24 Guaifenesin/Pseudoephedrne HCl (Mucinex D ER 1,200-120 mg Tab) 1,200 Mg-120 Mg Tab.er.12h, 1 TAB PO BID for 10 Days, #20 TAB 0 Refills Prov:SABI AMARAL 04/21/24 Benzonatate (Tessalon Perles) 100 Mg Cap, 100 MG PO TID for cough for 10 Days, #30 CAP 0 Refills Prov:SABI AMARAL 04/21/24 Famotidine (Famotidine) 20 Mg Tablet, 20 MG PO DAILY for 30 Days, #30 TAB Prov:RICHARD CARVAJAL NP 02/24/24 Atorvastatin Calcium (LIPITOR) 20 Mg Tab, 1 TAB PO DAILY for 30 Days, #30 TAB 0 Refills Prov:RICHARD CARVAJAL NP 02/24/24 Aspirin (Aspirin) 81 Mg Tab.chew, 1 TAB PO DAILY for 30 Days, #30 TAB 0 Refills Prov:RICHARD CARVAJAL NP 02/24/24 Clopidogrel Bisulfate (Plavix) 75 Mg Tablet, 75 MG PO DAILY for 20 Days, #20 TAB Prov:RICHARD CARVAJAL NP 02/24/24 Reported Medications Acetaminophen (Tylenol) 500 Mg Tab, 1 TAB PO Q6HPRN PRN for pain or fever for 15 Days, #60 TAB 0 Refills 02/24/24 Past Medical History Past Medical History: Anemia, CAD, GERD, High Cholesterol, Heart Disease, Hypertension, Migraines, Stroke, TIA Additional Past Medical Hx: 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 No unintentional weight loss reported. ENT: No hearing loss, otalgia, otorrhea, rhinitis, rhinorrhea, hoarseness, or sore throat. CARDIOVASCULAR: Denies any exertional angina, dyspnea on exertion, orthopnea, paroxysmal nocturnal dyspnea, palpitations claudication. PULMONARY: Denies any shortness of breath, cough, phlegm / sputum, hemoptysis, pleuritic chest pain. SLEEP: Denies morning headaches, daytime somnolence or napping. Denies difficulty falling asleep, staying asleep, waking from sleep. Denies knowledge of snoring. GASTROINTESTINAL: Denies any type of dysphagia to either liquids or solids. Denies nausea, vomiting, abdominal pain, diarrhea, constipation, blood in stools . NEUROLOGICAL: Denies headache, motor weakness, sensory deficit, vertigo / spinning sensation, gait abnormalities, or tremors. GENITOURINARY: Denies frequency, urgency, nocturia, hematuria or incontinence, low urinary stream, straining to void, urinary intermittency or hesitancy ENDOCRINOLOGY: Denies polyuria, polydipsia, polyphagia or heat / cold intolerance. HEMATOLOGY: Denies thrombophilia / previous clots, or coagulopathy / bleeding disorders. ONCOLOGIC: Denies personal history of malignancy. DERMATOLOGIC: Denies rashes or pruritus. PSYCHIATRIC: Denies any suicidal or homicidal ideation. Denies hallucinations. Initial Vital Sign VS Vital Signs Date Time Temp Pulse Resp B/P (MAP) Pulse Ox O2 Delivery O2 Flow Rate FiO2 07/02/24 15:33 98.2 66 16 125/85 98 Room Air 0 07/02/24 16:43 21 Physical Exam Dictation PHYSICAL EXAM GENERAL APPEARANCE: Well nourished . Awake and alert. Oriented to time, place and person. No acute cardiopulmonary distress. HEENT: Head normocephalic , atraumatic. Sclera anicteric . Pupils are round and reactive. Extraocular movements intact . No conjunctival injection. No nasal congestion. No throat congestion .Oral mucosa moist. NECK: Supple. No JVD. No thyromegaly. No submental, submandibular, pre- /postauricular, occipital or supraclavicular lymphadenopathy. No carotid bruits. CHEST: Normal chest expansion. No Telemetry. LUNGS: Clear to auscultation bilaterally . No rales, rhonchi or any wheezing. Equal tactile fremitus. Resonant to percussion . CARDIOVASCULAR: Regular rate and rhythm. S1 and S2 normal. No rubs, murmurs or gallops. ABDOMEN: Soft, nontender, and nondistended. There is no rebound tenderness, voluntary guarding, or rigidity. No hepatosplenomegaly. Bowel sounds normal in all four quadrants . NEUROLOGICAL: Cranial nerves II-XII grossly intact. Motor is 5/5 in bilateral upper and lower extremities . No sensory deficits. No spinal tenderness , no paraspinal muscle spasm EXTREMITIES: No edema, No cyanosis , No clubbing. Good capillary refill. SKIN: Ecchymotic patches over extremities Left lower extremity: No sensory or motor weakness appreciated. Tenderness elicited over tibial shaft. Krupa's sign and Vidal sign negative. ED Course ED Course Orders Procedure Category Date Status Time Ketorolac PHA 07/02/24 Complete Tromethamine 15mg/Ml 16:30 Current Medications Medications (Trade) Dose Ordered Sig/Ike Route PRN Reason Start Time Stop Time Status Last Admin Dose Admin Ketorolac Tromethamine (toRADol) 15 mg ONCE ONCE IM 07/02/24 16:30 07/02/24 16:31 DC 07/02/24 16:43 Vital Signs Date Time Temp Pulse Resp B/P (MAP) Pulse Ox O2 Delivery O2 Flow Rate FiO2 07/02/24 16:43 98.2 65 16 121/79 98 Room Air* 0 21 07/02/24 15:33 98.2 66 16 125/85 98 Room Air 0 Medical Decision Making [facility] Differential diagnosis : Meralgia paresthetica , peripheral neuropathy including diabetic neuropathy, peripheral artery disease Rationale: Tests considered and ordered secondary to shared decision making include: I will re-evaluate the patient after treatment and diagnostic exams have returned to determine whether they require further testing, can be safely discharged home, or need admission for further treatment and evaluation. Given the social determinants of health affecting care, including literacy, access to medical care, prescription drug management, and [id number] drugs, I will ensure that treatment plans are tailored accordingly. There are no social concerns with this patient. Risk of complication and/or morbidity or mortality of patient management: None Need for hospitalization: Patient does not meet criteria for hospitalization. Need for emergency major/minor surgery: No Prescription drug management Prescriptions will include symptomatic care Medications-Per medication reconciliation Previous outside records reviewed: Old ER visits. Patient's prior external medical records from other ER visits were reviewed by me as indicated. Prior testing and results from previous visits were reviewed. Prior tests were taken into account with medical decision making and resource utilization, independent historian/historians were used to obtain complete medical history. I independently interpreted the test that were performed, results were reviewed by me and considered findings on radiology. Medical management and examination interpretation discussions was done by me with other qualified healthcare professionals as indicated for the patient's care. Revaluation: Patient feels better after a short of Toradol. Since the paresthesias more suggestive of a chronic neuropathy we will request the patient to follow up as outpatient to rule out the above-mentioned possible differential diagnosis. Disposition : Discharge home DX & DISP Disposition: Discharge Departure Impression: Primary Impression: Peripheral neuropathy, idiopathic Additional Impression: Paresthesia Condition: Stable Scripts Gabapentin (Gabapentin) 100 Mg Capsule 1 CAP PO BID for 10 Days, #20 CAP 0 Refills Prov: SOUMYA FOSTER MD 07/02/24 Additional Instructions: Follow-up with primary care provider in 1-2 days Take medications as directed here in the emergency room. It is okay to continue home medications unless otherwise discussed during your visit in the emergency room today. Increase oral hydration. If a wound culture or urine culture was ordered here in the emergency room department, please follow-up with primary care provider and advised them to get reports from our facility. If you had any Neri wrap/splints that were applied here placed to not remove them until you see your primary care physician. Return to your nearest emergency room if symptoms worsen or if there is no improvement. Call 911 if you need immediate assistance. Referrals: EFRAIN BENITES (PCP) I performed a substantive portion of the visit. I have reviewed and personally made and approve the management plan that is documented in the notes by myself with DOUGLAS/resident. I acknowledged full responsibility for the patient's management plan. SOUMYA FOSTER MD Jul 02, 2024 16:38 BERNA POTTS DO Jul 03, 2024 07:17
[2024-07-02 16:43] VITALS: BP 121/79; PULSE 65; RESP 16; TEMP 98.3; O2SAT 98
[2024-07-02] MEDS: ketOROlac 15MG/ML VIAL (15MG/ML) IM ONE (16:43)
== END 2024-07-02 16:49 | disposition home or self-care (01) ==
LOC: EDH 15:20
DX: G60.9 Hereditary and idiopathic neuropathy, unspecified (principal); R20.0 Anesthesia of skin; I11.9 Hypertensive heart disease without heart failure; E78.00 Pure hypercholesterolemia, unspecified; I25.10 Atherosclerotic heart disease of native coronary artery without angina pectoris; G43.909 Migraine, unspecified, not intractable, without status migrainosus; Z79.01 Long term (current) use of anticoagulants; Z79.02 Long term (current) use of antithrombotics/antiplatelets; Z79.82 Long term (current) use of aspirin; Z79.899 Other long term (current) drug therapy; Z86.73 Personal history of transient ischemic attack (TIA), and cerebral infarction without residual deficits; Z88.0 Allergy status to penicillin; Z90.49 Acquired absence of other specified parts of digestive tract; Z90.710 Acquired absence of both cervix and uterus; Z98.890 Other specified postprocedural states
CPT/HCPCS: 99284; 96372; J1885

== ENCOUNTER 2024-08-30 11:21 | Emergency (ER) | payer BC ==
[~2024-08-30] VITALS: Ht 61 cm; Wt 81.6 kg
[~2024-08-30 11:21] MED LIST changes: +GABA-529 PO
[2024-08-30 11:23] VITALS: BP 124/80; PULSE 63; RESP 16; TEMP 97.8
--- NOTE | 2024-08-30 11:29 | ERN ---
ED Note History of Present Illness Stated Complaint: SORE THROAT, DYSURIA, FREQUENCY Chief Complaint: Sore Throat Time Seen by MD: 11:24 Dictation: PATIENT IS A 59-YEAR-OLD FEMALE COMING IN WITH MULTIPLE COMPLAINTS. FIRST COMPLAINT IS SHE HAS BEEN HAVING FLU-LIKE SYMPTOMS WITH A SORE THROAT, PAINFUL SWALLOWING FOR THE LAST 2-3 DAYS. DENIES FEVER CHILLS NAUSEA VOMITING. IN ADDITION SHE STATES SHE HAS URINARY URGENCY AND FREQUENCY FOR THE SAME AMOUNT OF TIME, STATES SHE HAS A HISTORY OF URINARY TRACT INFECTIONS. SHE HAS NOT BEEN TO SEE YOUR PRIMARY CARE DOCTOR NO APPOINTMENT WAS AVAILABLE UNTIL THE August. NO FLANK PAIN. Allergies: Coded Allergies: Penicillins (Unverified Allergy, Unknown, RASH, 04/17/18) Quinolones (Unverified Allergy, Unknown, HIVES, 07/03/15) Home Meds Active Scripts Phenazopyridine HCl (Pyridium) 200 Mg Tab, 200 MG PO TIDPC for 3 Days, #9 TAB TAKE WITH FOOD TO PREVENT STOMACH UPSET. Prov:DAVIDA MINER NP 08/30/24 Azithromycin (Zithromax Tri-Vito) 500 Mg Tablet, 1 TAB PO DAILY for 5 Days, #5 TAB 0 Refills Prov:DAVIDA MINER NP 08/30/24 Gabapentin (Gabapentin) 100 Mg Capsule, 1 CAP PO BID for 10 Days, #20 CAP 0 Refills Prov:SOUMYA FOSTER MD 07/02/24 Guaifenesin/Pseudoephedrne HCl (Mucinex D ER 1,200-120 mg Tab) 1,200 Mg-120 Mg Tab.er.12h, 1 TAB PO BID for 10 Days, #20 TAB 0 Refills Prov:SABI AMARAL 04/21/24 Benzonatate (Tessalon Perles) 100 Mg Cap, 100 MG PO TID for cough for 10 Days, #30 CAP 0 Refills Prov:SABI AMARAL 04/21/24 Famotidine (Famotidine) 20 Mg Tablet, 20 MG PO DAILY for 30 Days, #30 TAB Prov:RICHARD CARVAJAL NP 02/24/24 Atorvastatin Calcium (LIPITOR) 20 Mg Tab, 1 TAB PO DAILY for 30 Days, #30 TAB 0 Refills Prov:RICHARD CARVAJAL NP 02/24/24 Aspirin (Aspirin) 81 Mg Tab.chew, 1 TAB PO DAILY for 30 Days, #30 TAB 0 Refills Prov:RICHARD CARVAJAL PHOTOGRAPHER'S ASSISTANT 02/24/24 Clopidogrel Bisulfate (Plavix) 75 Mg Tablet, 75 MG PO DAILY for 20 Days, #20 TAB Prov:RICHARD CARVAJAL PHOTOGRAPHER'S ASSISTANT 02/24/24 Reported Medications Acetaminophen (Tylenol) 500 Mg Tab, 1 TAB PO Q6HPRN PRN for pain or fever for 15 Days, #60 TAB 0 Refills 02/24/24 Past Medical History Past Medical History: Anemia, CAD, GERD, High Cholesterol, Heart Disease, Hypertension, Migraines, Stroke, TIA Additional Past Medical Hx: 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 Surgical History: Hysterectomy, Cholecystectomy, Social History: Negative History: Not Applicable RN Note Reviewed/Agreed w/PFSH: Yes Review of System Dictation CONSTITUTIONAL: NEGATIVE EXCEPT FOR HPI HEAD/FACE: NEGATIVE EXCEPT FOR HPI EENT: NEGATIVE EXCEPT FOR HPI SORE THROAT WITH PAINFUL SWALLOWING RESPIRATORY: NEGATIVE EXCEPT FOR HPI GASTROINTESTINAL/ABDOMINAL: NEGATIVE EXCEPT FOR HPI GENITOURINARY: NEGATIVE EXCEPT FOR HPI DYSURIA WITH FREQUENCY MUSCULOSKELETAL: NEGATIVE EXCEPT FOR HPI INTEGUMENTARY: NEGATIVE EXCEPT FOR HPI NEUROLOGICAL/PSYCH: NEGATIVE EXCEPT FOR HPI HEMATOLOGIC/LYMPHATIC: NEGATIVE EXCEPT FOR HPI ALL SYSTEMS NEGATIVE, EXCEPT NOTED ABOVE. 13 POINT REVIEW OF SYSTEMS ASSESSED AND ALL NEGATIVE EXCEPT FOR ABOVE. Initial Vital Sign VS Vital Signs Date Time Temp Pulse Resp B/P (MAP) Pulse Ox O2 Delivery O2 Flow Rate FiO2 08/30/24 11:23 97.9 63 16 124/80 96 Room Air 0 Physical Exam Dictation VITAL SIGNS REVIEWED GENERAL APPEARANCE: ALERT, ORIENTED X 3, MILD ACUTE DISTRESS, WELL DEVELOPED, NOURISHED. HEAD AND FACE: NON-TRAUMATIC. EYES: PERRL, PINK CONJUNCTIVAS, EYELID NO TRAUMA, ANTERIOR CHAMBER WITH ARCUS SENILIS. EARS: PINNAS INTACT AND NO SIGNS OF TRAUMA OR ERYTHEMA EAR CANALS CLEAR AND NO DISCHARGE TM NO ERYTHEMA NOSE: NO DISCHARGE, NO BLEEDING. OROPHARYNX: MOUTH NORMAL, TONGUE PINK, PHARYNX CLEAR MILD PHARYNGEAL ERYTHEMA, TONSILS NO EXUDATES, NO ABSCESSES NOTED, MUCOUS MEMBRANE MOIST UVULA MIDLINE, VOICE IS CLEAR NECK: SUPPLE, NON-TENDER, NO THYROMEGALY, NO MASSES, NO JVD, NO BRUITS BREAST:DEFERRED CHEST:NO TENDERNESS, NO CREPITUS, NO PARADOXICAL MOVEMENT, NO RETRACTIONS LUNGS:CLEAR, WELL-VENTILATED, SYMMETRIC, NO RALES, NO WHEEZING, NO RHONCHI, NO STRIDOR, GOOD BREATH SOUNDS BILATERALLY HEART: REGULAR RATE, REGULAR RHYTHM, NO MURMUR, NO GALLOPS VASCULAR: NO PERIPHERAL EDEMA, ABDOMEN: SOFT, POSITIVE BOWEL SOUNDS, NONDISTENDED, NO GUARDING, NONTENDER, NO REBOUND, NO MASSES NO HEPATOMEGALY, NO SPLENOMEGALY, NO HUERTA'S SIGN, NO HERNIAS. RECTAL: DEFERRED GENITAL: DEFERRED NEUROLOGICAL: NORMAL SPEECH, MOTOR FUNCTION INTACT, SENSORY FUNCTION INTACT MUSCULOSKELETAL: NECK NONTENDER, FULL RANGE OF MOTION, BACK NONTENDER, FULL RANGE OF MOTION, EXTREMITIES: NONTENDER, FULL RANGE OF MOTION SKIN: COLOR PINK, DRY, NO TURGOR, NO RASH, NO LACERATIONS, NO ABRASIONS, NO CONTUSIONS. LYMPHATIC: DEFERRED Results (Laboratory/Radiology) Laboratory/Radiology Laboratory Tests Test 08/30/24 11:39 Urine Color YELLOW (YELLOW) Urine Appearance CLOUDY (CLEAR) H Urine pH 5.5 (5.0-8.0) Urine Specific [place] 1.023 (1.001-1.031) Urine Protein 10 mg/dL (NEGATIVE) H Urine Glucose (UA) NEGATIVE mg/dL (NEGATIVE) Urine Ketones NEGATIVE mg/dL (NEGATIVE) Urine Occult Blood NEGATIVE (NEGATIVE) Urine Nitrate NEGATIVE (NEGATIVE) Urine Bilirubin NEGATIVE mg/dL (NEGATIVE) Urine Urobilinogen 0.2 mg/dL (0.2-1.0) Urine Leukocyte Esterase NEGATIVE [place]/uL Urine RBC 0-1 /HPF (0-1) Urine WBC 2-5 /HPF (0-1) H Urine Squamous Epithelial Cells MOD /HPF (0-2) Urine Bacteria None /HPF (None Seen) Influenza Type A Antigen Negative For Type A Influenza Type B Antigen Negative For Type B SARS-CoV-2 Antigen (Rapid) PRESUMPTIVE NEGATIVE Group A Streptococcus Rapid negative (NEGATIVE) Labs Reviewed?: Yes ED Course ED Course Orders Procedure Category Date Status Time Covid19 (Sars Antigen LAB 08/30/24 Complete Rapid) 11:26 Influenza Type A & B, LAB 08/30/24 Complete Rapid 11:26 Rapid (Group A Strep) LAB 08/30/24 Complete 11:26 Urinalysis Profile LAB 08/30/24 Complete 11:26 Vital Signs Date Time Temp Pulse Resp B/P (MAP) Pulse Ox O2 Delivery O2 Flow Rate FiO2 08/30/24 11:23 97.9 63 16 124/80 96 Room Air 0 1325/PATIENT MADE AWARE THE UA AND SWABS FOR FLU COVID AND STREP ALL NEGATIVE. WE WILL TREATED EMPIRICALLY FOR ACUTE PHARYNGITIS WITH AZITHROMYCIN, TOLD TO SEE YOUR PRIMARY CARE DOCTOR Medical Decision Making MDM MEDICAL DECISION-MAKING BASED ON SWABS FOR FLU COVID AND URINALYSIS. PATIENT WILL BE TREATED EMPIRICALLY FOR ACUTE PHARYNGITIS UNSPECIFIED AZITHROMYCIN 500 Q.DAY FOR FIVE DAYS PRESCRIBED DX & DISP Disposition: Discharge Departure Impression: Primary Impression: Acute pharyngitis, unspecified Additional Impression: Dysuria Condition: Stable Scripts Phenazopyridine HCl (Pyridium) 200 Mg Tab 200 MG PO TIDPC for 3 Days, #9 TAB TAKE WITH FOOD TO PREVENT STOMACH UPSET. Prov: DAVIDA MINER PHOTOGRAPHER'S ASSISTANT 08/30/24 Azithromycin (Zithromax Tri-Vito) 500 Mg Tablet 1 TAB PO DAILY for 5 Days, #5 TAB 0 Refills Prov: DAVIDA MINER NP 08/30/24 Additional Instructions: FOLLOW-UP WITH PRIMARY CARE PROVIDER IN 1 TO 2 DAYS. TAKE MEDICATIONS DIRECTED HERE IN THE EMERGENCY ROOM. OKAY TO CONTINUE HOME MEDICATIONS UNLESS OTHERWISE DISCUSSED DURING YOUR VISIT IN THE EMERGENCY ROOM TODAY. RETURN TO YOUR NEAREST EMERGENCY ROOM IF SYMPTOMS WORSEN OR IF THERE IS NO IMPROVEMENT. CALL 911 IF YOU NEED IMMEDIATE ASSISTANCE. TAKE TYLENOL OR MOTRIN [id number] NEEDED AND IF NO CONTRAINDICATIONS ARE PRESENT. INCREASE ORAL HYDRATION. A WOUND CULTURE OR URINE CULTURE WAS ORDERED HERE IN THE EMERGENCY ROOM DEPARTMENT PLEASE FOLLOW-UP WITH PRIMARY CARE PROVIDER AND ADVISE THEM TO GET REPEAT PORTS FROM OUR FACILITY. IF YOU HAD ANY ISIAH WRAP/SPLINTS THAT WERE APPLIED HERE, PLEASE DO NOT REMOVE THEM UNTIL YOU SEE YOUR PRIMARY CARE OR SPECIALTY. TAKE AZITHROMYCIN DIRECTED UNTIL GONE. INCREASE YOUR WATER INTAKE. SEE YOUR PRIMARY CARE DOCTOR FOR FOLLOW UP. Referrals: EFRAIN BENITES (PCP) Time of Disposition: 13:25 I have reviewed the case, and I agree with, Diagnosis and Plan DAVIDA MINER NP August 30, 2024 11:29 BERNA POTTS DO August 30, 2024 18:10
[2024-08-30 12:04] LABS: APPEARANCE,URINE CLOUDY (CLEAR); BILIRUBIN,URINE NEGATIVE (NEGATIVE); COLOR,URINE YELLOW (YELLOW); GLUCOSE, URINE (UA) NEGATIVE (NEGATIVE); KETONES,URINE NEGATIVE (NEGATIVE); LEUKOCYTE ESTERASE ,URINE NEGATIVE Leu/uL (NEGATIVE); NITRATE,URINE NEGATIVE (NEGATIVE); OCCULT BLOOD,URINE NEGATIVE (NEGATIVE); PH,URINE 5.5 (5.0-8.0); PROTEIN,URINE 10 mg/dL (NEGATIVE); UROBILINOGEN,URINE 0.2 mg/dL (0.2-1.0)
[2024-08-30 12:09] LABS: ADD UA MICROSCOPIC YES
[2024-08-30 12:11] LABS: MUCUS,URINE FEW LPF (None Seen); RBC,URINE 0-1 /HPF (0-1); SQUAMOUS EPITHELIAL CELL,UR MOD /HPF (0-2)
[2024-08-30 12:26] LABS: RAPID GROUP A STREP negative (NEGATIVE)
[2024-08-30 12:36] LABS: COVID19 (SARS ANTIGEN RAPID) PRESUMPTIVE NEGATIVE (NEGATIVE); INFLUENZA TYPE A Negative For Type A (NEGATIVE); INFLUENZA TYPE B Negative For Type B (NEGATIVE)
[2024-08-30] MEDS ORDERED: AZIT500T2 PO (13:27)
[2024-08-30] MEDS ORDERED: PHEN-847 PO (13:27)
== END 2024-08-30 13:37 | disposition home or self-care (01) ==
LOC: EDH 11:21
DX: J02.9 Acute pharyngitis, unspecified (principal); R30.0 Dysuria; E78.00 Pure hypercholesterolemia, unspecified; I10 Essential (primary) hypertension; I25.10 Atherosclerotic heart disease of native coronary artery without angina pectoris; Z79.02 Long term (current) use of antithrombotics/antiplatelets; Z79.82 Long term (current) use of aspirin; Z79.899 Other long term (current) drug therapy; Z86.73 Personal history of transient ischemic attack (TIA), and cerebral infarction without residual deficits; Z88.0 Allergy status to penicillin; Z90.49 Acquired absence of other specified parts of digestive tract; Z90.710 Acquired absence of both cervix and uterus; Z20.822 Contact with and (suspected) exposure to COVID-19
CPT/HCPCS: 81001; 87426; 87804; 87880; 99283

== ENCOUNTER 2024-10-06 14:20 | Emergency (ER) | payer BC ==
[~2024-10-06] VITALS: Ht 157.5 cm; Wt 81.6 kg
[~2024-10-06 14:20] MED LIST changes: +AZIT500T2 PO; +PHEN-847 PO
--- NOTE | 2024-10-06 14:35 | ERN ---
ED Note History of Present Illness Stated Complaint: HEADACHE, NOSE BLEED Chief Complaint: Headache Time Seen by MD: 14:21 Dictation: PATIENT IS A 59-YEAR-OLD FEMALE COMING IN TODAY WITH COMPLAINTS OF BILATERAL OCCIPITAL HEADACHE THAT RADIATES TO HER BILATERAL PARIETAL AREAS ONSET THREE DAYS PRIOR TO ARRIVAL. NO FEVER NO CHILLS NO NAUSEA VOMITING. NIH IS 0. SHE HAS TAKEN [id number] MEDICATIONS FOR THE HEADACHES. SHE STATES WHEN SHE SAW HER PRIMARY CARE DOCTOR, SHE DID NOT ORDER ANY NEW MEDICATIONS FOR HER AND TOLD HER TO JUST TAKE [id number] MEDS FOR TENSION OR MIGRAINE HEADACHE. SHE DOES HAVE AN APPOINTMENT Allergies: Coded Allergies: Penicillins (Unverified Allergy, Unknown, RASH, 04/17/18) Quinolones (Unverified Allergy, Unknown, HIVES, 07/03/15) Home Meds Active Scripts Butalb/Acetaminophen/Caffeine (Fioricet) 50 Mg-325 Mg-40 Mg Tab, 2 TAB PO Q4HPRN PRN for HEADACHE, #20 TAB 0 Refills TWO TABLETS BY MOUTH EVERY 4 HOURS NEEDED FOR HEADACHE, MAXIMUM SIX TABLETS IN 24 HOURS Prov:DAVIDA MINER NP 10/06/24 Phenazopyridine HCl (Pyridium) 200 Mg Tab, 200 MG PO TIDPC for 3 Days, #9 TAB TAKE WITH FOOD TO PREVENT STOMACH UPSET. Prov:DAVIDA MINER NP 08/30/24 Azithromycin (Zithromax Tri-Vito) 500 Mg Tablet, 1 TAB PO DAILY for 5 Days, #5 TAB 0 Refills Prov:DAVIDA MINER NP 08/30/24 Gabapentin (Gabapentin) 100 Mg Capsule, 1 CAP PO BID for 10 Days, #20 CAP 0 Refills Prov:SOUMYA FOSTER MD 07/02/24 Guaifenesin/Pseudoephedrne HCl (Mucinex D ER 1,200-120 mg Tab) 1,200 Mg-120 Mg Tab.er.12h, 1 TAB PO BID for 10 Days, #20 TAB 0 Refills Prov:SABI AMARAL 04/21/24 Benzonatate (Tessalon Perles) 100 Mg Cap, 100 MG PO TID for cough for 10 Days, #30 CAP 0 Refills Prov:SABI AMARAL 04/21/24 Famotidine (Famotidine) 20 Mg Tablet, 20 MG PO DAILY for 30 Days, #30 TAB Prov:ALENARICHRAD NP 02/24/24 Atorvastatin Calcium (LIPITOR) 20 Mg Tab, 1 TAB PO DAILY for 30 Days, #30 TAB 0 Refills Prov:RICHARD CARVAJAL NP 02/24/24 Aspirin (Aspirin) 81 Mg Tab.chew, 1 TAB PO DAILY for 30 Days, #30 TAB 0 Refills Prov:RICHARD CARVAJAL NP 02/24/24 Clopidogrel Bisulfate (Plavix) 75 Mg Tablet, 75 MG PO DAILY for 20 Days, #20 TAB Prov:RICHARD CARVAJAL NP 02/24/24 Reported Medications Acetaminophen (Tylenol) 500 Mg Tab, 1 TAB PO Q6HPRN PRN for pain or fever for 15 Days, #60 TAB 0 Refills 02/24/24 Past Medical History Past Medical History: Anemia, CAD, GERD, High Cholesterol, Heart Disease, Hypertension, Migraines, Stroke, TIA Additional Past Medical Hx: 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 Surgical History: Hysterectomy, Cholecystectomy, Social History: Negative History: Not Applicable RN Note Reviewed/Agreed w/PFSH: Yes Review of System Dictation CONSTITUTIONAL: NEGATIVE EXCEPT FOR HPI HEAD/FACE: NEGATIVE EXCEPT FOR HPI EENT: NEGATIVE EXCEPT FOR HPI RESPIRATORY: NEGATIVE EXCEPT FOR HPI GASTROINTESTINAL/ABDOMINAL: NEGATIVE EXCEPT FOR HPI GENITOURINARY: NEGATIVE EXCEPT FOR HPI MUSCULOSKELETAL: NEGATIVE EXCEPT FOR HPI INTEGUMENTARY: NEGATIVE EXCEPT FOR HPI NEUROLOGICAL/PSYCH: NEGATIVE EXCEPT FOR HPI OCCIPITAL HEADACHE THREE DAYS HEMATOLOGIC/LYMPHATIC: NEGATIVE EXCEPT FOR HPI ALL SYSTEMS NEGATIVE, EXCEPT NOTED ABOVE. 13 POINT REVIEW OF SYSTEMS ASSESSED AND ALL NEGATIVE EXCEPT FOR ABOVE. Initial Vital Sign VS Vital Signs Date Time Temp Pulse Resp B/P (MAP) Pulse Ox O2 Delivery O2 Flow Rate FiO2 10/06/24 14:26 98.1 65 18 103/76 96 Room Air 0 10/06/24 14:49 21 Physical Exam Dictation VITAL SIGNS REVIEWED GENERAL APPEARANCE: ALERT, ORIENTED X 3, MODERATE ACUTE DISTRESS, WELL DEVELOPED, NOURISHED. HEAD AND FACE: NON-TRAUMATIC. EYES: PERRL, PINK CONJUNCTIVAS, EYELID NO TRAUMA, ANTERIOR CHAMBER WITH ARCUS SENILIS. EARS: PINNAS INTACT AND NO SIGNS OF TRAUMA OR ERYTHEMA EAR CANALS CLEAR AND NO DISCHARGE TM NO ERYTHEMA NOSE: NO DISCHARGE, NO BLEEDING. OROPHARYNX: MOUTH NORMAL, TONGUE PINK, PHARYNX CLEAR,NO ERYTHEMA, TONSILS NO EXUDATES, NO ABSCESSES NOTED, MUCOUS MEMBRANE MOIST NECK: SUPPLE, NON-TENDER, NO THYROMEGALY, NO MASSES, NO JVD, NO BRUITS BREAST:DEFERRED CHEST:NO TENDERNESS, NO CREPITUS, NO PARADOXICAL MOVEMENT, NO RETRACTIONS LUNGS:CLEAR, WELL-VENTILATED, SYMMETRIC, NO RALES, NO WHEEZING, NO RHONCHI, NO STRIDOR, GOOD BREATH SOUNDS BILATERALLY HEART: REGULAR RATE, REGULAR RHYTHM, NO MURMUR, NO GALLOPS VASCULAR: NO PERIPHERAL EDEMA, ABDOMEN: SOFT, POSITIVE BOWEL SOUNDS, NONDISTENDED, NO GUARDING, NONTENDER, NO REBOUND, NO MASSES NO HEPATOMEGALY, NO SPLENOMEGALY, NO HUERTA'S SIGN, NO HERNIAS. RECTAL: DEFERRED GENITAL: DEFERRED NEUROLOGICAL: NORMAL SPEECH, MOTOR FUNCTION INTACT, SENSORY FUNCTION INTACT NIH IS 0 MUSCULOSKELETAL: NECK NONTENDER, FULL RANGE OF MOTION, BACK NONTENDER, FULL RANGE OF MOTION, EXTREMITIES: NONTENDER, FULL RANGE OF MOTION SKIN: COLOR PINK, DRY, NO TURGOR, NO RASH, NO LACERATIONS, NO ABRASIONS, NO CONTUSIONS. LYMPHATIC: DEFERRED ED Course ED Course Orders Procedure Category Date Status Time Cyclobenzaprine Hcl PHA 10/06/24 Complete (Cyclobenzaprine Hcl 15:00 Dexamethasone 4mg/Ml PHA 10/06/24 Complete 1ml Vial (Dexametha 15:00 Ketorolac 60mg/2ml PHA 10/06/24 Complete (Toradol 60mg/2ml) 15:00 Hydrocodone/Apap PHA 10/06/24 Complete 5/325 ([place] 5/325mg) 15:00 Current Medications Medications (Trade) Dose Ordered Sig/Ike Route PRN Reason Start Time Stop Time Status Last Admin Dose Admin Acetaminophen/ Hydrocodone Bitart (NORco 5/325MG) 1 tab ONCE ONCE PO 10/06/24 15:00 10/06/24 15:01 DC 10/06/24 15:23 Cyclobenzaprine HCl (Cyclobenzaprine HCl) 10 mg ONCE ONCE PO 10/06/24 15:00 10/06/24 15:01 DC 10/06/24 15:22 Dexamethasone Sodium Phosphate (dexaMETHasone 4MG/ML 1ML VIAL) 8 mg ONCE ONCE IM 10/06/24 15:00 10/06/24 15:01 DC 10/06/24 15:22 Ketorolac Tromethamine (toRADol 60MG/ 2ML) 60 mg ONCE ONCE IM 10/06/24 15:00 10/06/24 15:01 DC 10/06/24 15:22 Vital Signs Date Time Temp Pulse Resp B/P (MAP) Pulse Ox O2 Delivery O2 Flow Rate FiO2 10/06/24 16:07 97.5 54 16 115/60 98 Room Air* 0 21 10/06/24 14:49 55 16 135/85 97 Room Air* 0 21 10/06/24 14:26 98.1 65 18 103/76 96 Room Air 0 1535/PATIENT NOW LYING ON THE BED IN ROOM THREE TALKING ON THE TELEPHONE AND WATCHING TV. SHE STATES THE PAIN IS IMPROVED AFTER TREATMENT. DISCHARGED HOME WITH DIAGNOSIS OF TENSION HEADACHE AND WE WILL BE SENT HOME WITH FIORICET. Medical Decision Making MDM MEDICAL DECISION-MAKING BASED ON EMPIRIC TREATMENT FOR AN ACUTE TENSION TYPE HEADACHE. PATIENT'S PAIN IS MANAGED DISCHARGED HOME WITH FIORICET AND TOLD TO FOLLOW UP WITH HER PRIMARY CARE DOCTOR DX & DISP Disposition: Discharge Departure Impression: Primary Impression: Acute tension-type headache Condition: Stable Scripts Butalb/Acetaminophen/Caffeine (Fioricet) 50 Mg-325 Mg-40 Mg Tab 2 TAB PO Q4HPRN PRN for HEADACHE, #20 TAB 0 Refills TWO TABLETS BY MOUTH EVERY 4 HOURS NEEDED FOR HEADACHE, MAXIMUM SIX TABLETS IN 24 HOURS Prov: DAVIDA MINER GREY IRON MOLDER 10/06/24 Additional Instructions: Follow-up with primary care provider in 1 to 2 days. Take medications as directed here in the emergency room. Okay to continue home medications unless otherwise discussed during your visit in the emergency room today. Return to your nearest emergency room if symptoms worsen or if there is no improvement. Call 911 if you need immediate assistance. Take Tylenol or Motrin [id number] as needed and if no contraindications are present. Increase oral hydration. A wound culture or urine culture was ordered here in the emergency room department please follow-up with primary care provider and advise them to get repeat ports from our facility. If you had any Neri wrap/splints that were applied here, please do not remove them until you see your primary care or specialty. Take medications as directed for your headache., follow up with your primary care doctor in the next one two days for referral to Neurology for further rome luation and treatment. Referrals: EFRAIN BENITES (PCP) Time of Disposition: 15:38 I have reviewed the case, and I agree with, Diagnosis and Plan DAVIDA MINER NP Oct 06, 2024 14:35 BERNA POTTS DO Oct 06, 2024 17:46
[2024-10-06] MEDS: CYCLOBENZAPRINE HCL 10 MG TABLET PO ONE (15:22)
[2024-10-06] MEDS: ketOROlac 60 MG VIAL (30MG/ML) IM ONE (15:22)
[2024-10-06] MEDS: dexaMETHasone SOD PHOSPHATE 4 MG/ML 1ML VIAL IM ONE (15:22)
[2024-10-06] MEDS: HYDROcodone/APAP 5/325 1 TAB TABLET PO ONE (15:23)
[2024-10-06] MEDS ORDERED: FIORIT PO (15:40)
[2024-10-06 16:07] VITALS: BP 115/60; PULSE 54; RESP 16; TEMP 97.5; O2SAT 98
== END 2024-10-06 16:09 | disposition home or self-care (01) ==
LOC: EDH 14:20
DX: G44.209 Tension-type headache, unspecified, not intractable (principal); I25.10 Atherosclerotic heart disease of native coronary artery without angina pectoris; E78.00 Pure hypercholesterolemia, unspecified; I10 Essential (primary) hypertension; Z79.02 Long term (current) use of antithrombotics/antiplatelets; Z79.82 Long term (current) use of aspirin; Z79.899 Other long term (current) drug therapy; Z86.73 Personal history of transient ischemic attack (TIA), and cerebral infarction without residual deficits; Z88.0 Allergy status to penicillin; Z90.49 Acquired absence of other specified parts of digestive tract; Z90.710 Acquired absence of both cervix and uterus
CPT/HCPCS: 99284; 96372 ×2; J1100; J1885

== ENCOUNTER 2024-10-09 23:57 | Emergency (ER) | payer BC ==
[~2024-10-09] VITALS: Ht 157.5 cm; Wt 81.6 kg
[~2024-10-09 23:57] MED LIST changes: +FIORIT PO
--- NOTE | 2024-10-10 00:46 | ERN ---
General Chief Complaint: Headache Stated Complaint: HEADACHE Time Seen by MD: 00:02 Source: patient History of Present Illness Initial Comments 59-year-old female comes in with severe headache that seems to be starting around her bilateral mastoid processes. The headaches are pounding. They do wax and wane. But there is no warning for when they will come back no visual changes no prodrome, she can not predict when her next headache we will occur. She was seen here three days ago given IM injections of Kenalog and Norflex and discharged on Fioricet. She said those interventions helped her for maybe a day and since then the headaches have come back. She said she was diagnosed with tension headaches three days ago but she can not point to any stress in her life. No other symptoms no fever no chills no nausea no vomiting no diarrhea. Timing/Duration: 1 week Allergies: Coded Allergies: Penicillins (Unverified Allergy, Unknown, RASH, 04/17/18) Quinolones (Unverified Allergy, Unknown, HIVES, 07/03/15) Home Meds Active Scripts Butalb/Acetaminophen/Caffeine (Fioricet) 50 Mg-325 Mg-40 Mg Tab, 2 TAB PO Q4HPRN PRN for HEADACHE, #20 TAB 0 Refills TWO TABLETS BY MOUTH EVERY 4 HOURS NEEDED FOR HEADACHE, MAXIMUM SIX TABLETS IN 24 HOURS Prov:DAVIDA MINER NP 10/06/24 Phenazopyridine HCl (Pyridium) 200 Mg Tab, 200 MG PO TIDPC for 3 Days, #9 TAB TAKE WITH FOOD TO PREVENT STOMACH UPSET. Prov:DAVIDA MINER NP 08/30/24 Azithromycin (Zithromax Tri-Vito) 500 Mg Tablet, 1 TAB PO DAILY for 5 Days, #5 TAB 0 Refills Prov:DAVIDA MINER NP 08/30/24 Gabapentin (Gabapentin) 100 Mg Capsule, 1 CAP PO BID for 10 Days, #20 CAP 0 Ref ills Prov:SOUMYA FOSTER MD 07/02/24 Guaifenesin/Pseudoephedrne HCl (Mucinex D ER 1,200-120 mg Tab) 1,200 Mg-120 Mg Tab.er.12h, 1 TAB PO BID for 10 Days, #20 TAB 0 Refills Prov:SABI AMARAL 04/21/24 Benzonatate (Tessalon Perles) 100 Mg Cap, 100 MG PO TID for cough for 10 Days, #30 CAP 0 Refills Prov:SABI AMARAL 04/21/24 Famotidine (Famotidine) 20 Mg Tablet, 20 MG PO DAILY for 30 Days, #30 TAB Prov:RICHARD CARVAJAL NP 02/24/24 Atorvastatin Calcium (LIPITOR) 20 Mg Tab, 1 TAB PO DAILY for 30 Days, #30 TAB 0 Refills Prov:RICHARD CARVAJAL NP 02/24/24 Aspirin (Aspirin) 81 Mg Tab.chew, 1 TAB PO DAILY for 30 Days, #30 TAB 0 Refills Prov:RICHARD CARVAJAL NP 02/24/24 Clopidogrel Bisulfate (Plavix) 75 Mg Tablet, 75 MG PO DAILY for 20 Days, #20 TAB Prov:RICHARD CARVAJAL NP 02/24/24 Reported Medications Acetaminophen (Tylenol) 500 Mg Tab, 1 TAB PO Q6HPRN PRN for pain or fever for 15 Days, #60 TAB 0 Refills 02/24/24 Past Medical History Past Medical History: Anemia, CAD, GERD, High Cholesterol, Heart Disease, Hypertension, Migraines, Stroke, TIA Medical History Other: 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 Past Surgical History: Hysterectomy, Cholecystectomy, Social History Social History: Negative Female( History) History: Not Applicable Constitutional: (-) chills, (-) diaphoresis, (-) fever, (-) malaise, (-) weakness, (-) other documentation EENTM: (-) eye pain, (-) blurred vision, (-) tearing, (-) double vision, (-) ear pain, (-) ear discharge, (-) nose pain, (-) nose congestion, (-) throat pain, (-) Throat swelling, (-) mouth pain, (-) tooth pain, (-) mouth swelling, (-) other documentation Respiratory: (-) cough, (-) orthopnea, (-) short of breath, (-) stridor, (-) wheezing, (-) other documentation Cardiovascular: (-) chest pain, (-) edema, (-) palpitations, (-) syncope, (-) dyspnea on exertion, (-) other documentation Gastrointestinal/Abdominal: (-) nausea, (-) vomiting, (-) diarrhea, (-) abdominal pain, (-) abdominal distention, (-) constipation, (-) rectal bleeding, (-) dark stool/melena, (-) other documentation Musculoskeletal: (+) Neck pain Skin: (-) laceration, (-) contusion, (-) abrasion, (-) abscess, (-) rash, (-) change in color, (-) change in hair, (-) change in nails, (-) diaphoresis, (-) dryness, (-) other documentation Neuro: (+) headache Physical Exam General Appearance: (+) moderate distress Orientation: (+) alert, (+) oriented x 3 Head/Face Trauma: No Eye: bilateral eye normal inspection, bilateral eye PERRL, bilateral eye EOMI Ear, Nose, Throat: (+) hearing grossly normal, (+) normal ENT inspection Neck: (+) normal inspection, (+) supple, (+) full range of motion Neck Comment Patient does have muscle tenderness on her bilateral mastoid processes. Respiratory: (+) chest non-tender, (+) lungs clear, (+) well ventilated Heart: (+) regular, (+) no gallop Vascular: (+) no edema, (+) normal peripheral pulse Gastrointestinal: (+) soft, (+) non-tender, (+) bowel sound present Skin Comment Mild tenting of the skin in the backs of her hands. Results Laboratory and Microbiology Lab and Micro Result Laboratory Tests Test 10/10/24 00:45 10/10/24 01:18 White Blood Count 8.3 K/uL (4.8-10.8) Red Blood Count 4.77 MIL/uL (4.00-5.50) Hemoglobin 14.2 g/dL (12.0-16.0) Hematocrit 42.4 % (36-48) Mean Corpuscular Volume 88.9 fL (79-99) Mean Corpuscular Hemoglobin 29.8 pg (27.0-33.0) Mean Corpuscular Hemoglobin Concent 33.5 g/dL (32.0-36.0) Red Cell Distribution Width 12.8 % (11.0-15.5) Platelet Count 139 K/uL (130-400) Mean Platelet Volume 12.1 fL (7.5-10.5) H Immature Granulocyte % (Auto) 0.2 % (0-1) Neutrophils (%) (Auto) 54.6 % (40.0-77.0) Lymphocytes (%) (Auto) 36.7 % (21.0-51.0) Monocytes (%) (Auto) 6.6 % (3.0-13.0) Eosinophils (%) (Auto) 1.7 % (0.0-8.0) Basophils (%) (Auto) 0.2 % (0.0-5.0) Neutrophils # (Auto) 4.5 K/uL (1.8-7.7) Lymphocytes # (Auto) 3.0 K/uL (1.0-4.8) Monocytes # (Auto) 0.6 K/uL (0.1-1.0) Eosinophils # (Auto) 0.14 K/uL (0.00-0.70) Basophils # (Auto) 0.02 K/uL (0.00-0.20) Absolute Immature Granulocyte (auto 0.02 K/uL (0-1) Nucleated Red Blood Cells 0.0 % (0.0-0.19) Sodium Level 145 mmol/L (136-145) Potassium Level 3.4 mmol/L (3.5-5.1) L Chloride Level 110 mmol/L (101-111) Carbon Dioxide Level 25 mmol/L (21-32) Blood Urea Nitrogen 26 mg/dL (7-18) H Creatinine 0.9 mg/dL (0.5-1.0) Glomerular Filtration Rate Calc 75 mL/min (>90) Random Glucose 134 mg/dL (70-105) H Total Calcium 8.7 mg/dL (8.5-10.1) Urine Color LIGHT-YELLOW (YELLOW) Urine Appearance CLEAR (CLEAR) Urine pH 5.5 (5.0-8.0) Urine Specific Mora 1.029 (1.001-1.031) Urine Protein NEGATIVE mg/dL (NEGATIVE) Urine Glucose (UA) NEGATIVE mg/dL (NEGATIVE) Urine Ketones NEGATIVE mg/dL (NEGATIVE) Urine Occult Blood NEGATIVE (NEGATIVE) Urine Nitrate NEGATIVE (NEGATIVE) Urine Bilirubin NEGATIVE mg/dL (NEGATIVE) Urine Urobilinogen 0.2 mg/dL (0.2-1.0) Urine Leukocyte Esterase NEGATIVE Fermin/uL MDM MDM: Differential diagnosis: Patient could have tension headaches, she could have dehydration, migraines, spinal stenosis, electrolyte abnormalities, Rationale: Tests considered and ordered secondary to shared decision making include: Previous outside records reviewed: Old ER visits. Risk of complication and/or morbidity or mortality of patient management: None Medications-Per medication reconciliation Need for hospitalization: Patient does meet criteria for hospitalization. Need for emergency major/minor surgery: No There are no social concerns with this patient. Prescription drug management Prescriptions will include symptomatic care Patient's prior external medical records from other ER visits were reviewed by me as indicated. Prior testing and results from previous visits were reviewed. Prior tests were taken into account with medical decision making and resource utilization, independent historian/historians were used to obtain complete medical history. I independently interpreted the test that were performed, results were reviewed by me and considered findings on radiology if ordered. Patient has a lot of arthritic changes in her C-spine. These could be creating her headaches. Patient does say she feels better with the fluids and the Toradol and the Flexeril. I will discharge her with the Flexeril and Toradol. She needs to contact her primary care physician for further pain management and also reference referral to a neck surgeon. ED Course Orders Procedure Category Date Status Time Lactated Ringers PHA 10/10/24 Complete 1000ml (Lactated 00:34 Cyclobenzaprine Hcl PHA 10/10/24 Complete (Cyclobenzaprine Hcl 01:00 Ketorolac PHA 10/10/24 Complete Tromethamine 30mg/Ml 01:00 Basic Metabolic Panel LAB 10/10/24 Complete 00:34 Cbc With Differential LAB 10/10/24 Complete 00:34 Urinalysis Profile LAB 10/10/24 Complete 00:34 Ct Cervical Spine W/O CT 10/10/24 Taken Contrast 00:34 Lactated Ringers PHA 10/10/24 Complete 1000ml (Lactated 02:16 Current Medications Medications (Trade) Dose Ordered Sig/Ike Route PRN Reason Start Time Stop Time Status Last Admin Dose Admin Cyclobenzaprine HCl (Cyclobenzaprine HCl) 10 mg ONCE ONCE PO 10/10/24 01:00 10/10/24 01:01 DC 10/10/24 00:50 Ketorolac Tromethamine (toRADol) 30 mg ONCE ONCE IVP 10/10/24 01:00 10/10/24 01:01 DC 10/10/24 00:50 Lactated Ringer's (Lactated Ringers 1000ml) 1,000 ml BOLUS STAT IV 10/10/24 00:34 10/10/24 00:37 DC 10/10/24 00:49 Lactated Ringer's (Lactated Ringers 1000ml) 1,000 ml BOLUS STAT IV 10/10/24 02:16 10/10/24 02:19 DC 10/10/24 02:25 Vital Signs Date Time Temp Pulse Resp B/P (MAP) Pulse Ox O2 Delivery O2 Flow Rate FiO2 10/10/24 01:31 98.4 73 17 138/68 99 Room Air* 0 21 10/10/24 00:30 86 19 163/82 99 Room Air* 0 10/09/24 23:58 98.4 70 20 176/100 98 Room Air DX & DISP Disposition: Discharge Departure Impression: Primary Impression: Acute tension-type headache Additional Impression: Cervical spine arthritis Condition: Stable Scripts Cyclobenzaprine HCl (Cyclobenzaprine HCl) 10 Mg Tablet 1 TAB PO HS for muscle spasms for 30 Days, #30 TAB 0 Refills Prov: BISHOP BERNARD MD 10/10/24 Ketorolac Tromethamine (Toradol) 10 Mg Tab 1 TAB PO TID for pain for 5 Days, #15 TAB 0 Refills Prov: BISHOP BERNARD MD 10/10/24 Additional Instructions: You do have what could be tension headaches or dehydration headaches or aches being caused by the arthritis in your neck. The treatment for all of these is to stay well hydrated, anti-inflammatory medications and pain medications. I recommend you get a referral from your primary care doctor to see an orthopedic or neurosurgeon who specializes in neck surgeries to see if they feel they can offer something to help with decrease your headaches. Referrals: EFRAIN BENITES (PCP) BISHOP BERNARD MD Oct 10, 2024 00:46
[2024-10-10] MEDS: LACTATED RINGERS 1000ML IV STA ×2 (00:49→02:25)
[2024-10-10] MEDS: CYCLOBENZAPRINE HCL 10 MG TABLET PO ONE (00:50)
[2024-10-10] MEDS: ketOROlac 30MG VIAL (30MG/ML) IVP ONE (00:50)
[2024-10-10 00:59] LABS: BASOPHILS # (AUTO) 0.02 K/uL (0.00-0.20); BASOPHILS % (AUTO) 0.2 % (0.0-5.0); EOSINOPHILS # (AUTO) 0.14 K/uL (0.00-0.70); EOSINOPHILS % (AUTO) 1.7 % (0.0-8.0); HEMATOCRIT 42.4 % (36-48); IMMATURE GRANULOCYTE ABSOLUTE 0.02 K/uL (0-1); LYMPHOCYTES % (AUTO) 36.7 % (21.0-51.0); MEAN CORPUSCULAR HEMOGLOBIN 29.8 pg (27.0-33.0); MEAN CORPUSCULAR HGB CONC 33.5 g/dL (32.0-36.0); MEAN CORPUSCULAR VOLUME 88.9 fL (79-99); MONOCYTES # (AUTO) 0.6 K/uL (0.1-1.0); MONOCYTES % (AUTO) 6.6 % (3.0-13.0); NEUTROPHILS # (AUTO) 4.5 K/uL (1.8-7.7); NEUTROPHILS % (AUTO) 54.6 % (40.0-77.0); PLATELET COUNT (AUTO) 139 K/uL (130-400); RED BLOOD CELL COUNT(AUTO) 4.77 MIL/uL (4.00-5.50); RED CELL DISTRIBUTION WIDTH 12.8 % (11.0-15.5); WHITE BLOOD COUNT (AUTO) 8.3 K/uL (4.8-10.8)
[2024-10-10 01:01] LABS: CREATININE 0.9 mg/dL (0.5-1.0); POTASSIUM 3.4 mmol/L (3.5-5.1)
[2024-10-10 02:17] LABS: ADD UA MICROSCOPIC NO; APPEARANCE,URINE CLEAR (CLEAR); BILIRUBIN,URINE NEGATIVE (NEGATIVE); COLOR,URINE LIGHT-YELLOW (YELLOW); GLUCOSE, URINE (UA) NEGATIVE (NEGATIVE); KETONES,URINE NEGATIVE (NEGATIVE); LEUKOCYTE ESTERASE ,URINE NEGATIVE Leu/uL (NEGATIVE); NITRATE,URINE NEGATIVE (NEGATIVE); OCCULT BLOOD,URINE NEGATIVE (NEGATIVE); PH,URINE 5.5 (5.0-8.0); PROTEIN,URINE NEGATIVE (NEGATIVE); UROBILINOGEN,URINE 0.2 mg/dL (0.2-1.0)
[2024-10-10] MEDS ORDERED: KETO10 PO (02:59)
[2024-10-10] MEDS ORDERED: CYCL-309 PO (02:59)
[2024-10-10 03:35] VITALS: BP 134/76; PULSE 69; RESP 17; TEMP 98.2; O2SAT 99
--- NOTE | 2024-10-10 08:14 | HMCIMG ---
Exam Type: CT cervical spine without contrast Clinical Information: CINTRON, arthritis Comparison: None Technique: Spiral axial images were performed from the base of the skull down to the thoracic vertebral bodies. Both sagittal and coronal reconstructions were performed. CT Dose Index (CTDI): 12.85 mGy Dose Length Product (DLP): 282.6 total Findings: There are degenerative changes. Degenerative disc disease is noted at multiple levels. There is adequate alignment and preservation of normal cervial lordosis. There is facet hypertrophy at multiple levels. IMPRESSION: Degenerative changes as noted. No acute pathology. No fractures seen. This study was performed using dose reduction techniques to include automated exposure control and/or adjustment of the mA and/or kV according to patient size.
== END 2024-10-10 03:40 | disposition home or self-care (01) ==
LOC: EDH 23:57
DX: G44.209 Tension-type headache, unspecified, not intractable (principal); M47.812 Spondylosis without myelopathy or radiculopathy, cervical region; E78.00 Pure hypercholesterolemia, unspecified; I10 Essential (primary) hypertension; I25.10 Atherosclerotic heart disease of native coronary artery without angina pectoris; Z79.02 Long term (current) use of antithrombotics/antiplatelets; Z79.82 Long term (current) use of aspirin; Z79.899 Other long term (current) drug therapy; Z86.73 Personal history of transient ischemic attack (TIA), and cerebral infarction without residual deficits; Z88.0 Allergy status to penicillin; Z90.49 Acquired absence of other specified parts of digestive tract; Z90.710 Acquired absence of both cervix and uterus
CPT/HCPCS: 99284; 80048; 85025; 81003; 36415; 96374; 72125; 96361; J1885; J7120